=== PATIENT | male | born 1940 | race Caucasian/White ===

== ENCOUNTER 2018-05-21 08:59 | Inpatient (IN) | payer MEDICARE, OTHER ==
[2018-05-17 14:54] LABS: BASOPHILS % (AUTO) 0.4 % (0-1); EOSINOPHILS # (AUTO) 0.1 X10'3 (0-0.9); EOSINOPHILS % (AUTO) 1.6 % (0-6); LYMPHOCYTES # (AUTO) 1.9 X10'3 (1.1-4.8); LYMPHOCYTES % (AUTO) 27.6 % (21-51); MEAN CORPUSCULAR HEMOGLOBIN 33.2 PG (27.0-31.0); MEAN CORPUSCULAR HGB CONC 34.6 % (33.0-36.5); MEAN CORPUSCULAR VOLUME 95.8 FL (78-98); MEAN PLATELET VOLUME 7.3 FL (7.4-10.4); MONOCYTES # (AUTO) 0.6 X10'3 (0-0.9); MONOCYTES % (AUTO) 9.3 % (2-12); NEUTROPHILS # (AUTO) 4.2 X10'3 (1.8-7.7); NEUTROPHILS % (AUTO) 61.1 % (42-75); PRE OP HEMATOCRIT 43.6 % (42.0-52.0); PRE OP HEMOGLOBIN 15.1 g/dL (14.0-17.9); PRE OP PLATELET COUNT 145 X10'3 (140-440); RED BLOOD COUNT 4.55 X10'6 (4.70-6.10)
[2018-05-17 15:08] LABS: ALBUMIN 3.4 G/DL (3.4-5.0); ALBUMIN/GLOBULIN RATIO 1.2 (1.1-1.5); ALKALINE PHOSPHATASE 77 IU/L (46-116); BLOOD UREA NITROGEN 32 MG/DL (7-18); BUN/CREATININE RATIO 27.4 (5.4-32.0); CALCIUM 8.9 MG/DL (8.5-10.1); CHLORIDE 107 MMOL/L (99-107); CREATININE 1.17 MG/DL (0.60-1.10); PRE OP ALT 34 U/L (30-65); PRE OP ANION GAP 5 (8-16); PRE OP AST 27 U/L (10-37); PRE OP BILIRUB, TOTAL 0.7 MG/DL (0.0-1.0); PRE OP GLUCOSE 96 MG/DL (70-104); PRE OP POTASSIUM 3.9 MMOL/L (3.4-5.1); PRE OP SODIUM 138 MMOL/L (135-145); TOTAL CARBON DIOXIDE 26.5 MMOL/L (24-32); TOTAL PROTEIN 6.3 G/DL (6.4-8.2); eGFR 61 ML/MIN
[~2018-05-21] VITALS: Ht 185.4 cm; Wt 94.4 kg
[2018-05-21] VITALS (15 sets, daily range): BP systolic 119–160; BP diastolic 78–102
[2018-05-21] MEDS: ringers solution, lacted 1,000 ML IV SCH ×3 (05:00→20:43)
[~2018-05-21 08:59] MED LIST: FLO0.4C PO; GABA-532 PO; MESSAGE TO NURSING PO ONE; OMEP-84 PO; WARF5TAB PO; ceFOXitin 2 GM ADDvantage bag 100 ML IV ONE; famotidine 20mg tablet PO ONE
[2018-05-21] MEDS ORDERED: RIVA10TA PO (09:17)
[2018-05-21 09:57] LABS: PARTIAL THROMBOPLASTIN TIME 28 SECONDS (22-32); PROTHROMBIN TIME 10.7 SECONDS (9.0-12.0)
[2018-05-21] MEDS ORDERED: ceFAZolin 1000mg inj ONE (12:38)
[2018-05-21] MEDS ORDERED: BUPIVAcaine/PF 2.5mg/ml (0.25%) 10ml vial ONE (12:39)
[2018-05-21] MEDS ORDERED: dexamethasone sod phosphate 10mg/ml inj ONE (15:40)
[2018-05-21] MEDS ORDERED: glycopyrrolate 0.2mg/ml inj ONE (15:40)
[2018-05-21] MEDS ORDERED: neostigmine methylsulfate 1 MG/ML 10ml vial ONE (15:40)
[2018-05-21] MEDS ORDERED: sevoflurane 250ml liquid IH ONE (15:40)
[2018-05-21] MEDS ORDERED: midazolam 2 mg/2 ml injection ONE (15:44)
[2018-05-21] MEDS ORDERED: fentaNYL/PF 50MCG/1 ML 2ML syringe ONE (15:44)
[2018-05-21] MEDS ORDERED: LIDOcaine 2% (20mg/ml) 5ml vial ONE (15:45)
[2018-05-21] MEDS ORDERED: propofol inj 20 ML IV ONE (15:45)
[2018-05-21] MEDS ORDERED: ringers solution, lacted 1,000 ML IV SCH (16:26)
[2018-05-21] MEDS ORDERED: labetalol 5mg/ml 20ml inj. IV PRN (16:30)
[2018-05-21] MEDS ORDERED: enalaprilat dihydrate 2.5mg/2ml vial IV PRN (16:30)
[2018-05-21] MEDS ORDERED: meperidine/PF 25mg/ml syringe IV PRN ×2 (16:30)
[2018-05-21] MEDS ORDERED: ondansetron/PF 4mg/2ml inj IV PRN ×2 (16:30→18:05)
[2018-05-21] MEDS ORDERED: proCHLORperazine 10 MG/2 ml inj IV PRN (16:30)
[2018-05-21] MEDS ORDERED: meperidine/PF 50mg/ml syringe ONE (16:34)
[2018-05-21] MEDS ORDERED: rocuronium 10mg/ml inj IV ONE (16:54)
[2018-05-21] MEDS ORDERED: ondansetron/PF 4mg/2ml inj ONE (16:55)
[2018-05-21] MEDS ORDERED: HYDROcodone/acetaminophen 10/325mg tab PO PRN (18:05)
[2018-05-21] MEDS ORDERED: HYDROmorphone 1 mg/ml syringe IV ONE (18:05)
[2018-05-21] MEDS ORDERED: HYDROmorphone/NS 1 mg/ml CADD 50 ML IV SCH (18:20)
[2018-05-21] MEDS: meperidine/PF 25mg/ml syringe IV PRN ×2 (18:48→18:53)
[2018-05-21] MEDS: metoclopramide 5 mg/ml inj IV SCH (19:20)
[2018-05-21] MEDS: potassium CL 20mEq in D5-1/2NS 1,000 ML IV SCH (20:45)
[2018-05-21] MEDS ORDERED: CADD PCA waste documentation MC SCH (23:45)
[2018-05-21] MEDS ORDERED: naloxone 0.4 mg/ml inj IV PRN (23:45)
[2018-05-22] MEDS ORDERED: ceFOXitin 1 GM ADDVANTAGE BAG 1,000 GM in normal saline 100ml IV soln 100 ML IV SCH ×2
[2018-05-22] MEDS: ceFOXitin 1 GM ADDVANTAGE BAG 50 ML IV SCH ×2 (00:12→07:55)
[2018-05-22] MEDS: HYDROmorphone/NS 1 mg/ml CADD 50 ML IV SCH ×12 (01:00→23:00)
[2018-05-22] MEDS: potassium CL 20mEq in D5-1/2NS 1,000 ML IV SCH ×4 (02:01→23:34)
[2018-05-22] MEDS: metoclopramide 5 mg/ml inj IV SCH ×4 (02:10→20:20)
[2018-05-22 05:09] LABS: BASOPHILS % (AUTO) 0 % (0-1); EOSINOPHILS % (AUTO) 0 % (0-6); HEMATOCRIT 42.7 % (42.0-52.0); HEMOGLOBIN 14.6 g/dl (14.0-17.9); LYMPHOCYTES # (AUTO) 0.5 X10'3 (1.1-4.8); LYMPHOCYTES % (AUTO) 5.6 % (21-51); MEAN CORPUSCULAR HEMOGLOBIN 32.9 PG (27.0-31.0); MEAN CORPUSCULAR HGB CONC 34.1 % (33.0-36.5); MEAN CORPUSCULAR VOLUME 96.6 FL (78-98); MEAN PLATELET VOLUME 8.5 FL (7.4-10.4); MONOCYTES # (AUTO) 0.5 X10'3 (0-0.9); MONOCYTES % (AUTO) 5.5 % (2-12); NEUTROPHILS # (AUTO) 8.3 X10'3 (1.8-7.7); NEUTROPHILS % (AUTO) 88.9 % (42-75); PLATELET COUNT 132 X10'3 (140-440); RED BLOOD COUNT 4.42 X10'6 (4.70-6.10); RED CELL DISTRIBUTION WIDTH 14.2 % (11.5-14.5); WHITE BLOOD COUNT 9.3 X10'3 (4.5-11.0)
[2018-05-22 05:28] LABS: ALBUMIN 3.2 G/DL (3.4-5.0); ANION GAP 7 (8-16); BLOOD UREA NITROGEN 31 MG/DL (7-18); CALCIUM 8.6 MG/DL (8.5-10.1); CHLORIDE 103 MMOL/L (99-107); CREATININE 1.24 MG/DL (0.60-1.10); GLUCOSE 199 MG/DL (70-104); POTASSIUM 4.6 MMOL/L (3.5-5.1); SODIUM 132 MMOL/L (135-145); TOTAL CARBON DIOXIDE 22.5 MMOL/L (24-32); eGFR 57 ML/MIN
[2018-05-22 07:00] VITALS: BP 122/74
[2018-05-22] MEDS ORDERED: docusate sod 100mg capsule PO SCH (08:00)
[2018-05-22] MEDS: sennosides/docusate sodium tablet PO SCH ×2 (08:00→20:21)
[2018-05-22 11:57] VITALS: BP 116/71
[2018-05-22] MEDS: phenazopyridine 100mg tablet PO SCH ×3 (12:56→17:11)
[2018-05-22 13:28] LABS: CLARITY,URINE CLEAR (Clear); COLOR,URINE STRAW (Yellow); GLUCOSE, URINE NEGATIVE (Neg); KETONES,URINE NEGATIVE (Neg); LEUKOCYTE ESTERASE ,URINE SMALL (Neg); NITRITES, URINE NEGATIVE (Neg); OCCULT BLOOD,URINE SMALL (Neg); PH,URINE 5.5 (4.8-8.0); PROTEIN,URINE NEGATIVE (Neg); UROBILINOGEN,URINE 0.2 E.U/dL (0.2-1.0)
[2018-05-22 13:32] LABS: UA COLLECTION TYPE NON-SPECIFIED
[2018-05-22 13:37] LABS: WBC,URINE 0-4 /HPF (0-4)
[2018-05-22 13:38] LABS: BACTERIA,URINE NONE SEEN /HPF (Neg); RBC,URINE 0-2 /HPF (0-2); SQUAMOUS EPITHELIAL CELL,UR FEW /LPF (FEW)
[2018-05-22 19:20] LABS: INR 1.1 INR; PROTHROMBIN TIME 11.5 SECONDS (9.0-12.0)
[2018-05-22 20:00] VITALS: BP 131/86
[2018-05-22] MEDS: gabapentin 300mg capsule PO SCH (20:22)
[2018-05-22] MEDS: tamsulosin 0.4mg capsule PO SCH (20:22)
[2018-05-22] MEDS: pantoprazole 40mg Tablet.DR PO SCH (20:22)
[2018-05-22] MEDS ORDERED: warfarin 5mg tablet PO SCH (21:00)
[2018-05-23] VITALS: BP 133/86
[2018-05-23] MEDS: HYDROmorphone/NS 1 mg/ml CADD 50 ML IV SCH ×12 (01:00→23:00)
[2018-05-23] MEDS: metoclopramide 5 mg/ml inj IV SCH ×4 (02:02→20:49)
[2018-05-23 05:23] LABS: BASOPHILS % (AUTO) 0.1 % (0-1); EOSINOPHILS # (AUTO) 0.1 X10'3 (0-0.9); EOSINOPHILS % (AUTO) 1.5 % (0-6); HEMATOCRIT 42.2 % (42.0-52.0); HEMOGLOBIN 14.2 g/dl (14.0-17.9); LYMPHOCYTES # (AUTO) 1.6 X10'3 (1.1-4.8); MEAN CORPUSCULAR HGB CONC 33.7 % (33.0-36.5); MEAN CORPUSCULAR VOLUME 97.9 FL (78-98); MEAN PLATELET VOLUME 8.3 FL (7.4-10.4); MONOCYTES # (AUTO) 0.9 X10'3 (0-0.9); MONOCYTES % (AUTO) 9.5 % (2-12); NEUTROPHILS # (AUTO) 6.9 X10'3 (1.8-7.7); NEUTROPHILS % (AUTO) 71.9 % (42-75); PLATELET COUNT 144 X10'3 (140-440); RED BLOOD COUNT 4.31 X10'6 (4.70-6.10); RED CELL DISTRIBUTION WIDTH 14.1 % (11.5-14.5); WHITE BLOOD COUNT 9.6 X10'3 (4.5-11.0)
[2018-05-23 05:42] LABS: ALBUMIN 2.8 G/DL (3.4-5.0); ANION GAP 5 (8-16); BLOOD UREA NITROGEN 19 MG/DL (7-18); BUN/CREATININE RATIO 15.8 (5.4-32.0); CALCIUM 8.7 MG/DL (8.5-10.1); CHLORIDE 106 MMOL/L (99-107); GLUCOSE 116 MG/DL (70-104); POTASSIUM 4.3 MMOL/L (3.5-5.1); SODIUM 137 MMOL/L (135-145); TOTAL CARBON DIOXIDE 25.8 MMOL/L (24-32); eGFR 59 ML/MIN
[2018-05-23 07:06] VITALS: BP 133/88
[2018-05-23] MEDS: gabapentin 300mg capsule PO SCH ×2 (07:43→20:47)
[2018-05-23] MEDS: pantoprazole 40mg Tablet.DR PO SCH ×2 (07:43→20:48)
[2018-05-23] MEDS: phenazopyridine 100mg tablet PO SCH ×3 (07:44→17:55)
[2018-05-23] MEDS: sennosides/docusate sodium tablet PO SCH ×2 (07:45→20:00)
[2018-05-23] MEDS: enoxaparin 40mg/0.4ml syringe SUBCUT SCH (07:46)
[2018-05-23 11:30] VITALS: BP 125/82
[2018-05-23] MEDS: potassium CL 20mEq in D5-1/2NS 1,000 ML IV SCH (13:08)
[2018-05-23] MEDS ORDERED: methylnaltrexone br 12mg/0.6ml inj***SubQ only SQ SCH (14:00)
[2018-05-23 18:00] VITALS: BP 106/82
[2018-05-23] MEDS: magnesium hydroxide 30ml (MOM) UD suspension PO SCH (20:00)
[2018-05-23] MEDS: tamsulosin 0.4mg capsule PO SCH (20:48)
[2018-05-23] MEDS ORDERED: warfarin 3mg tablet PO ONE (21:00)
[2018-05-24] VITALS: BP_SYST 109; BP_SYST 133; BP_DIAS 72; BP_DIAS 78
[2018-05-24] MEDS: HYDROmorphone/NS 1 mg/ml CADD 50 ML IV SCH (01:00)
[2018-05-24] MEDS: metoclopramide 5 mg/ml inj IV SCH ×3 (01:46→14:00)
[2018-05-24] MEDS: potassium CL 20mEq in D5-1/2NS 1,000 ML IV SCH (05:13)
[2018-05-24 05:21] LABS: BASOPHILS % (AUTO) 0.3 % (0-1); EOSINOPHILS # (AUTO) 0.2 X10'3 (0-0.9); EOSINOPHILS % (AUTO) 3.1 % (0-6); HEMATOCRIT 41.6 % (42.0-52.0); HEMOGLOBIN 14.2 g/dl (14.0-17.9); LYMPHOCYTES # (AUTO) 1.9 X10'3 (1.1-4.8); LYMPHOCYTES % (AUTO) 24.2 % (21-51); MEAN CORPUSCULAR HEMOGLOBIN 33.4 PG (27.0-31.0); MEAN PLATELET VOLUME 8.1 FL (7.4-10.4); MONOCYTES # (AUTO) 0.8 X10'3 (0-0.9); MONOCYTES % (AUTO) 10.7 % (2-12); NEUTROPHILS # (AUTO) 4.7 X10'3 (1.8-7.7); NEUTROPHILS % (AUTO) 61.7 % (42-75); PLATELET COUNT 139 X10'3 (140-440); RED BLOOD COUNT 4.25 X10'6 (4.70-6.10); RED CELL DISTRIBUTION WIDTH 14.4 % (11.5-14.5); WHITE BLOOD COUNT 7.6 X10'3 (4.5-11.0)
[2018-05-24 05:24] LABS: INR 1.1 INR; PROTHROMBIN TIME 11.3 SECONDS (9.0-12.0)
[2018-05-24 05:43] LABS: ALBUMIN 2.8 G/DL (3.4-5.0); ANION GAP 8 (8-16); BLOOD UREA NITROGEN 15 MG/DL (7-18); BUN/CREATININE RATIO 13.4 (5.4-32.0); CALCIUM 8.5 MG/DL (8.5-10.1); CHLORIDE 104 MMOL/L (99-107); CREATININE 1.12 MG/DL (0.60-1.10); GLUCOSE 87 MG/DL (70-104); POTASSIUM 4.3 MMOL/L (3.5-5.1); SODIUM 139 MMOL/L (135-145); TOTAL CARBON DIOXIDE 27.4 MMOL/L (24-32); eGFR 64 ML/MIN
[2018-05-24 07:02] VITALS: BP 118/81
[2018-05-24] MEDS: pantoprazole 40mg Tablet.DR PO SCH (07:54)
[2018-05-24] MEDS: gabapentin 300mg capsule PO SCH (07:54)
[2018-05-24] MEDS: phenazopyridine 100mg tablet PO SCH ×3 (07:54→19:16)
[2018-05-24] MEDS: enoxaparin 40mg/0.4ml syringe SUBCUT SCH (07:55)
[2018-05-24] MEDS: magnesium hydroxide 30ml (MOM) UD suspension PO SCH (08:00)
[2018-05-24] MEDS: sennosides/docusate sodium tablet PO SCH (08:00)
[2018-05-24] MEDS ORDERED: methylnaltrexone br 12mg/0.6ml inj***SubQ only SQ SCH (08:00)
[2018-05-24 11:31] VITALS: BP 107/80
[2018-05-24] MEDS ORDERED: warfarin 7.5mg tablet PO ONE ×2 (18:30→21:00)
== END 2018-05-24 19:50 | disposition home or self-care (01) | DRG 336 ==
LOC: PAS 08:59 → SUR 3N 18:01 → OBSVTOIN 05-22 08:00
PROVIDERS: ADMIT Surgery; ATTEND Surgery
PROC: 0DNU4ZZ Release Omentum, Percutaneous Endoscopic Approach (ICD-10-PCS; 2018-05-21)
PROC: 0DNE4ZZ Release Large Intestine, Percutaneous Endoscopic Approach (ICD-10-PCS; 2018-05-21)
PROC: 0WUF4JZ Supplement Abdominal Wall with Synthetic Substitute, Percutaneous Endoscopic Approach (ICD-10-PCS; principal; 2018-05-21 15:40)
DX: K43.2 Incisional hernia without obstruction or gangrene (principal); I42.9 Cardiomyopathy, unspecified; K21.9 Gastro-esophageal reflux disease without esophagitis; K66.0 Peritoneal adhesions (postprocedural) (postinfection); M41.9 Scoliosis, unspecified; G89.29 Other chronic pain; Z96.659 Presence of unspecified artificial knee joint; I49.9 Cardiac arrhythmia, unspecified; M48.00 Spinal stenosis, site unspecified; N40.0 Benign prostatic hyperplasia without lower urinary tract symptoms; Z88.5 Allergy status to narcotic agent; Z88.8 Allergy status to other drugs, medicaments and biological substances; Z79.899 Other long term (current) drug therapy; Z86.718 Personal history of other venous thrombosis and embolism; Y93.89 Activity, other specified; Y99.8 Other external cause status
CPT/HCPCS: 36415; 71046; 74176; 80048; 80053; 81001; 85025; 85610; 85730; 93005; A4315; A4353; A7000; C1758; C1781; G0378; J0690; J0694; J1100; J1170; J1650; J2001; J2175; J2250; J2405; J2704; J2710; J2765; J3010; J3490; J7120

== ENCOUNTER 2018-07-31 12:20 | Outpatient (CLI) | payer MEDICARE, OTHER ==
[~2018-07-31 12:20] MED LIST changes: -MESSAGE TO NURSING PO ONE; +RIVA10TA PO; -ceFOXitin 2 GM ADDvantage bag 100 ML IV ONE; -famotidine 20mg tablet PO ONE
== END 2018-07-31 23:59 | disposition home or self-care (01) ==
LOC: RAD 12:20
PROVIDERS: ATTEND Physical Medicine & Rehabilitation
DX: M47.816 Spondylosis without myelopathy or radiculopathy, lumbar region (principal); M47.815 Spondylosis without myelopathy or radiculopathy, thoracolumbar region; M41.86 Other forms of scoliosis, lumbar region; M51.36 Other intervertebral disc degeneration, lumbar region; M48.061 Spinal stenosis, lumbar region without neurogenic claudication; Z79.01 Long term (current) use of anticoagulants
CPT/HCPCS: 72148

== ENCOUNTER 2018-11-17 18:14 | Emergency (ER) | payer MEDICARE, OTHER ==
[~2018-11-17] VITALS: Ht 185.4 cm; Wt 102.0 kg
[2018-11-17 19:03] LABS: BASOPHILS # (AUTO) 0.1 X10'3 (0-0.2); BASOPHILS % (AUTO) 1.1 % (0-1); EOSINOPHILS # (AUTO) 0.2 X10'3 (0-0.9); EOSINOPHILS % (AUTO) 3.1 % (0-6); HEMATOCRIT 44.6 % (42.0-52.0); HEMOGLOBIN 14.7 g/dl (14.0-17.9); LYMPHOCYTES # (AUTO) 1.8 X10'3 (1.1-4.8); LYMPHOCYTES % (AUTO) 34.6 % (21-51); MEAN CORPUSCULAR HEMOGLOBIN 31.1 PG (27.0-31.0); MEAN CORPUSCULAR HGB CONC 32.9 % (33.0-36.5); MEAN CORPUSCULAR VOLUME 94.7 FL (78-98); MEAN PLATELET VOLUME 8.1 FL (7.4-10.4); MONOCYTES # (AUTO) 0.5 X10'3 (0-0.9); MONOCYTES % (AUTO) 10.4 % (2-12); NEUTROPHILS # (AUTO) 2.7 X10'3 (1.8-7.7); NEUTROPHILS % (AUTO) 50.8 % (42-75); PLATELET COUNT 171 X10'3 (140-440); RED BLOOD COUNT 4.71 X10'6 (4.70-6.10); RED CELL DISTRIBUTION WIDTH 13.2 % (11.5-14.5); WHITE BLOOD COUNT 5.3 X10'3 (4.5-11.0)
[2018-11-17 19:05] LABS: ALANINE AMINOTRANSFERASE 22 U/L (12-78); ALBUMIN 3.3 G/DL (3.4-5.0); ALBUMIN/GLOBULIN RATIO 1.2 (1.1-1.5); ALKALINE PHOSPHATASE 84 IU/L (46-116); ANION GAP 12 (8-16); ASPARTATE AMINO TRANSFERASE 21 U/L (10-37); BILIRUBIN,TOTAL 0.4 MG/DL (0.1-1.0); BLOOD UREA NITROGEN 23 MG/DL (7-18); BUN/CREATININE RATIO 21.5 (5.4-32.0); CALCIUM 8.3 MG/DL (8.5-10.1); CHLORIDE 104 MMOL/L (99-107); CREATININE 1.07 MG/DL (0.60-1.10); GLUCOSE 103 MG/DL (70-104); SODIUM 137 MMOL/L (135-145); TOTAL CARBON DIOXIDE 21.3 MMOL/L (24-32); eGFR 67 ML/MIN
[2018-11-17 19:07] LABS: INR 2.6 INR; PARTIAL THROMBOPLASTIN TIME 44 SECONDS (22-32); PROTHROMBIN TIME 25.5 SECONDS (9.0-12.0)
[2018-11-17 20:14] LABS: CLARITY,URINE CLEAR (Clear); COLOR,URINE YELLOW (Yellow); GLUCOSE, URINE NEGATIVE (Neg); KETONES,URINE TRACE mg/dl (Neg); LEUKOCYTE ESTERASE ,URINE NEGATIVE (Neg); NITRITES, URINE NEGATIVE (Neg); OCCULT BLOOD,URINE NEGATIVE (Neg); PH,URINE 6.5 (4.8-8.0); PROTEIN,URINE NEGATIVE (Neg); UROBILINOGEN,URINE 0.2 E.U/dL (0.2-1.0)
[2018-11-17 20:16] LABS: UA COLLECTION TYPE VOIDED
[2018-11-17] MEDS ORDERED: meclizine 12.5mg tablet PO ONE (20:20)
[2018-11-17] MEDS ORDERED: MECL12.584 PO (20:20)
[2018-11-17 21:05] VITALS: BP 117/82
== END 2018-11-17 22:01 | disposition home or self-care (01) ==
LOC: ER 18:14
DX: R42 Dizziness and giddiness (principal); K21.9 Gastro-esophageal reflux disease without esophagitis; G89.29 Other chronic pain; M54.9 Dorsalgia, unspecified; Z95.0 Presence of cardiac pacemaker; Z88.6 Allergy status to analgesic agent; Z88.8 Allergy status to other drugs, medicaments and biological substances
CPT/HCPCS: 36415; 70450; 71045; 80053; 81003; 84484; 85025; 85610; 85730; 93005; 99284; J8597

== ENCOUNTER 2019-12-09 14:53 | Outpatient (CLI) | payer MEDICARE, OTHER ==
[~2019-12-09 14:53] MED LIST changes: +MECL-183 PO
== END 2019-12-09 23:59 | disposition home or self-care (01) ==
LOC: RAD 14:53
PROVIDERS: ATTEND Physical Medicine & Rehabilitation
DX: M51.16 Intervertebral disc disorders with radiculopathy, lumbar region (principal); M47.26 Other spondylosis with radiculopathy, lumbar region
CPT/HCPCS: 72148

== ENCOUNTER 2020-04-17 15:11 | Inpatient (IN) | payer MEDICARE, OTHER ==
[~2020-04-17] VITALS: Ht 185.4 cm; Wt 90.4 kg
[~2020-04-17 15:11] MED LIST changes: -WARF5TAB PO; +WARF5TAB2 PO
--- NOTE | 2020-04-17 15:27 | NUR ---
Pt transported to CT via w/c with tech.
[2020-04-17 15:37] LABS: BASOPHILS # (AUTO) 0.1 X10'3 (0-0.2); BASOPHILS % (AUTO) 0.9 % (0-1); EOSINOPHILS # (AUTO) 0.2 X10'3 (0-0.9); EOSINOPHILS % (AUTO) 3.8 % (0-6); HEMATOCRIT 43.7 % (42.0-52.0); HEMOGLOBIN 14.4 g/dl (14.0-17.9); LYMPHOCYTES # (AUTO) 1.8 X10'3 (1.1-4.8); LYMPHOCYTES % (AUTO) 28.6 % (21-51); MEAN CORPUSCULAR HEMOGLOBIN 31.9 PG (27.0-31.0); MEAN CORPUSCULAR HGB CONC 32.9 g/dL (33.0-36.5); MEAN CORPUSCULAR VOLUME 96.9 FL (78-98); MEAN PLATELET VOLUME 8.1 FL (7.4-10.4); MONOCYTES # (AUTO) 0.5 X10'3 (0-0.9); MONOCYTES % (AUTO) 7.4 % (2-12); NEUTROPHILS # (AUTO) 3.7 X10'3 (1.8-7.7); NEUTROPHILS % (AUTO) 59.3 % (42-75); PLATELET COUNT 164 X10'3 (140-440); RED BLOOD COUNT 4.51 X10'6 (4.70-6.10); RED CELL DISTRIBUTION WIDTH 14.1 % (11.5-14.5); WHITE BLOOD COUNT 6.2 X10'3 (4.5-11.0)
--- NOTE | 2020-04-17 15:37 | NUR ---
patient in room 15.
[2020-04-17 15:45] LABS: PARTIAL THROMBOPLASTIN TIME 49 SECONDS (22-32)
[2020-04-17 15:46] LABS: ALANINE AMINOTRANSFERASE 32 U/L (12-78); ALBUMIN 3.4 G/DL (3.4-5.0); ALBUMIN/GLOBULIN RATIO 1.3 (1.1-1.5); ALKALINE PHOSPHATASE 90 IU/L (46-116); ANION GAP 5 (8-16); ASPARTATE AMINO TRANSFERASE 29 U/L (10-37); BILIRUBIN,TOTAL 0.5 MG/DL (0.1-1.0); BLOOD UREA NITROGEN 26 MG/DL (7-18); BUN/CREATININE RATIO 18.3 (5.4-32.0); CALCIUM 8.5 MG/DL (8.5-10.1); CHLORIDE 108 MMOL/L (99-107); CREATININE 1.42 MG/DL (0.60-1.10); GLUCOSE 123 MG/DL (70-104); POTASSIUM 4.4 MMOL/L (3.5-5.1); SODIUM 140 MMOL/L (135-145); TOTAL CARBON DIOXIDE 27.3 MMOL/L (24-32); eGFR 48 ML/MIN
[2020-04-17 15:49] LABS: TROPONIN I < 0.04 NG/ML (0.0-0.05)
[2020-04-17] MEDS ORDERED: WARF-113 PO (16:28)
[2020-04-17] MEDS ORDERED: ondansetron/PF 4mg/2ml inj IV PRN (17:05)
[2020-04-17] MEDS ORDERED: magnesium 4gm in 100ml NS 100 ML IV PRN (17:05)
[2020-04-17] MEDS ORDERED: potassium Cl 20 mEq SR tablet PO PRN ×2 (17:05)
[2020-04-17] MEDS ORDERED: mag hydrox/Alum hydrox/simeth 30ml oral suspension PO PRN (17:05)
[2020-04-17] MEDS ORDERED: potassium CL 10mEq/100ml bag 100 ML IV PRN ×2 (17:05)
[2020-04-17] MEDS ORDERED: acetaminophen 325mg tablet PO PRN ×2 (17:05)
[2020-04-17] MEDS ORDERED: magnesium 2GM in 50ml NS 50 ML IV PRN (17:05)
[2020-04-17] MEDS ORDERED: magnesium Cl slow-release 64mg tablet PO PRN (17:05)
[2020-04-17] MEDS: normal saline 1000ml 1,000 ML IV SCH (17:40)
[2020-04-17 19:00] VITALS: BP 144/87
[2020-04-17] MEDS: K and/or MAG REPLACEMENT MC SCH (20:00)
[2020-04-17] MEDS: docusate sod 100mg capsule PO SCH (20:44)
[2020-04-17] MEDS: gabapentin 300mg capsule PO SCH (20:44)
[2020-04-17] MEDS ORDERED: tamsulosin 0.4mg capsule PO SCH (21:00)
[2020-04-17] MEDS ORDERED: temazepam 15mg capsule PO PRN (21:00)
[2020-04-18] VITALS: BP 138/66
[2020-04-18 04:00] VITALS: BP 99/56
--- NOTE | 2020-04-18 05:56 | NUR ---
Problems reprioritized. Patient report given, questions answered & plan of care reviewed with JAXON Starkey.
[2020-04-18 06:00] VITALS: BP 122/77
--- NOTE | 2020-04-18 06:10 | NUR ---
received report from aby gray rn
[2020-04-18 07:11] LABS: BASOPHILS # (AUTO) 0.1 X10'3 (0-0.2); BASOPHILS % (AUTO) 1.5 % (0-1); EOSINOPHILS # (AUTO) 0.3 X10'3 (0-0.9); EOSINOPHILS % (AUTO) 6.8 % (0-6); HEMOGLOBIN 14.3 g/dl (14.0-17.9); LYMPHOCYTES # (AUTO) 1.8 X10'3 (1.1-4.8); LYMPHOCYTES % (AUTO) 40.4 % (21-51); MEAN CORPUSCULAR HEMOGLOBIN 31.9 PG (27.0-31.0); MEAN CORPUSCULAR HGB CONC 33.3 g/dL (33.0-36.5); MEAN CORPUSCULAR VOLUME 95.8 FL (78-98); MEAN PLATELET VOLUME 8.4 FL (7.4-10.4); MONOCYTES # (AUTO) 0.5 X10'3 (0-0.9); MONOCYTES % (AUTO) 10.3 % (2-12); NEUTROPHILS # (AUTO) 1.9 X10'3 (1.8-7.7); PLATELET COUNT 158 X10'3 (140-440); RED BLOOD COUNT 4.49 X10'6 (4.70-6.10); RED CELL DISTRIBUTION WIDTH 14.2 % (11.5-14.5); WHITE BLOOD COUNT 4.6 X10'3 (4.5-11.0)
[2020-04-18] MEDS: normal saline 1000ml 1,000 ML IV SCH (07:19)
[2020-04-18] MEDS: gabapentin 300mg capsule PO SCH (07:23)
[2020-04-18] MEDS: docusate sod 100mg capsule PO SCH (07:24)
[2020-04-18] MEDS ORDERED: pantoprazole 40mg Tablet.DR PO SCH (07:30)
[2020-04-18 07:31] LABS: ALBUMIN 3.2 G/DL (3.4-5.0); ANION GAP 7 (8-16); BLOOD UREA NITROGEN 22 MG/DL (7-18); BUN/CREATININE RATIO 17.5 (5.4-32.0); CALCIUM 8.8 MG/DL (8.5-10.1); CHLORIDE 110 MMOL/L (99-107); CHOL/HDL RATIO 2.2 (0.00-4.99); CHOLESTEROL 160 MG/DL (0-200); CREATININE 1.26 MG/DL (0.60-1.10); GLUCOSE 90 MG/DL (70-104); HDL CHOLESTEROL 74 MG/DL (35-60); LDL CHOLESTEROL 68 MG/DL (50-100); MAGNESIUM 2.1 MG/DL (1.5-2.4); POTASSIUM 4.8 MMOL/L (3.5-5.1); SODIUM 142 MMOL/L (135-145); TOTAL CARBON DIOXIDE 24.6 MMOL/L (24-32); TRIGLYCERIDES 58 MG/DL (20-135); eGFR 55 ML/MIN
[2020-04-18] MEDS: K and/or MAG REPLACEMENT MC SCH (07:37)
--- NOTE | 2020-04-18 07:40 | NUR ---
md aware of pts inr of 4.2, no new orders at this time, continue to monitor
[2020-04-18] MEDS ORDERED: tamsulosin 0.4mg capsule PO SCH (08:00)
[2020-04-18 10:00] VITALS: BP 121/71
[2020-04-18] MEDS ORDERED: iohexol 300mg/ml 100ml inj. ONE (15:05)
[2020-04-18] MEDS ORDERED: iohexol 350MG/ML 100ml bottle IV ONE (15:08)
--- NOTE | 2020-04-18 17:40 | NUR ---
pt d/c with instructions, understanding of instructions and w/all belongings in wheelchair accompanied by fam member to private vehicle to f/u w/manager trust and pcp
--- NOTE | 2020-04-21 11:54 | NUR ---
Case Management DC follow up: spoke to pt via telephone. S/P: Reports: "Doing well, fine". Denies: acute cp, SOB, resp distress, vertigo, syncope,weakness, blurry vision, N/V, BARRAGAN, emergent general pain, abd tenderness/distension, fever. Verbalizes understanding of s/s that warrant 9-11/ER visit for evaluation. Verbalizes understanding of Rx and why prescribed, resumes current Rx/taking as ordered, no ase r/t polypharmacy. Pt [facility]t [facility] 04/19/20 INR 2.7, admised to continue Continue Coumadin at the ordered dose. Acknowledges need to schedule/keep follow up appts w/ PCP Regan Tena/Power Humphrey r/t chronic back issuesPadmini 05/08/20. Pt will keep/schedule appts w/all other specialists, PCP after visit w/Dr Washington. Needs met, questions answered at DC, no further questions at this time.
== END 2020-04-18 17:35 | disposition home or self-care (01) | DRG 69 ==
LOC: ER 15:12 → ED HOLD 17:01 → ORTHO 4S 19:05
PROVIDERS: ADMIT Internal Medicine; ATTEND Internal Medicine
DX: G45.9 Transient cerebral ischemic attack, unspecified (principal); G89.29 Other chronic pain; I48.0 Paroxysmal atrial fibrillation; I49.5 Sick sinus syndrome; K21.9 Gastro-esophageal reflux disease without esophagitis; M54.9 Dorsalgia, unspecified; K44.9 Diaphragmatic hernia without obstruction or gangrene; N18.3 Chronic kidney disease, stage 3 (moderate); Z79.01 Long term (current) use of anticoagulants; Z79.899 Other long term (current) drug therapy; Z86.73 Personal history of transient ischemic attack (TIA), and cerebral infarction without residual deficits; Z95.0 Presence of cardiac pacemaker; Z88.8 Allergy status to other drugs, medicaments and biological substances
CPT/HCPCS: 36415; 70450; 70496; 70498; 71045; 73030; 80048; 80053; 80061; 82948; 83735; 84484; 85025; 85610; 85730; 93005; 93306; 93880; 97116; 97161; 97530; 99285; G0378; J7030; Q9967

== ENCOUNTER 2020-07-21 10:21 | Outpatient (CLI) | payer MEDICARE, OTHER ==
[~2020-07-21 10:21] MED LIST changes: -MECL-183 PO; -RIVA10TA PO; -WARF5TAB2 PO
== END 2020-07-21 23:59 | disposition home or self-care (01) ==
LOC: RAD 10:21
PROVIDERS: ATTEND Anesthesiology
DX: M47.22 Other spondylosis with radiculopathy, cervical region (principal); M48.02 Spinal stenosis, cervical region
CPT/HCPCS: 72141

== ENCOUNTER 2020-10-16 10:21 | Emergency (ER) | payer MEDICARE, OTHER ==
[~2020-10-16] VITALS: Ht 185.4 cm; Wt 88.0 kg
[2020-10-16 10:33] VITALS: BP 125/76
[2020-10-16] MEDS ORDERED: CEPH250T PO (12:05)
== END 2020-10-16 12:20 | disposition home or self-care (01) ==
LOC: ER 10:23
DX: B99.8 Other infectious disease (principal); K21.9 Gastro-esophageal reflux disease without esophagitis; N40.0 Benign prostatic hyperplasia without lower urinary tract symptoms; G89.29 Other chronic pain; Z86.79 Personal history of other diseases of the circulatory system; Z98.890 Other specified postprocedural states; Z95.0 Presence of cardiac pacemaker; Z72.89 Other problems related to lifestyle; Z88.8 Allergy status to other drugs, medicaments and biological substances; Z79.2 Long term (current) use of antibiotics; Z79.899 Other long term (current) drug therapy; Z86.73 Personal history of transient ischemic attack (TIA), and cerebral infarction without residual deficits
CPT/HCPCS: 99283

== ENCOUNTER 2021-04-09 22:34 | Emergency (ER) | payer MEDICARE, OTHER ==
[~2021-04-09] VITALS: Ht 185.4 cm; Wt 90.5 kg
[2021-04-10 00:16] LABS: ALANINE AMINOTRANSFERASE 27 U/L (12-78); ALBUMIN 3.8 G/DL (3.4-5.0); ALBUMIN/GLOBULIN RATIO 1.4 (1.1-1.5); ALKALINE PHOSPHATASE 78 IU/L (46-116); ANION GAP 11 (8-16); ASPARTATE AMINO TRANSFERASE 24 U/L (10-37); BILIRUBIN,TOTAL 0.9 MG/DL (0.1-1.0); BLOOD UREA NITROGEN 23 MG/DL (7-18); CALCIUM 9.2 MG/DL (8.5-10.1); CHLORIDE 106 MMOL/L (99-107); CREATININE 1.44 MG/DL (0.60-1.10); GLUCOSE 114 MG/DL (70-104); LIPASE 67 U/L (73-393); POTASSIUM 4.3 MMOL/L (3.5-5.1); SODIUM 139 MMOL/L (135-145); TOTAL CARBON DIOXIDE 21.9 MMOL/L (24-32); TOTAL PROTEIN 6.6 G/DL (6.4-8.2); eGFR 47 ML/MIN
[2021-04-10 01:04] LABS: BASOPHILS # (AUTO) 0.1 X10'3 (0-0.2); BASOPHILS % (AUTO) 0.8 % (0-1); EOSINOPHILS # (AUTO) 0.2 X10'3 (0-0.9); HEMATOCRIT 44.5 % (42.0-52.0); HEMOGLOBIN 15.3 g/dl (14.0-17.9); LYMPHOCYTES # (AUTO) 1.7 X10'3 (1.1-4.8); LYMPHOCYTES % (AUTO) 21.6 % (21-51); MEAN CORPUSCULAR HEMOGLOBIN 32.3 PG (27.0-31.0); MEAN CORPUSCULAR HGB CONC 34.3 g/dL (33.0-36.5); MEAN CORPUSCULAR VOLUME 94.2 FL (78-98); MEAN PLATELET VOLUME 8.7 FL (7.4-10.4); MONOCYTES # (AUTO) 0.8 X10'3 (0-0.9); NEUTROPHILS % (AUTO) 65.6 % (42-75); PLATELET COUNT 168 X10'3 (140-440); RED BLOOD COUNT 4.72 X10'6 (4.70-6.10); RED CELL DISTRIBUTION WIDTH 13.6 % (11.5-14.5); WHITE BLOOD COUNT 7.7 X10'3 (4.5-11.0)
[2021-04-10 02:55] LABS: CLARITY,URINE CLEAR (Clear); COLOR,URINE YELLOW (Yellow); GLUCOSE, URINE NEGATIVE (Neg); KETONES,URINE 15 mg/dl (Neg); LEUKOCYTE ESTERASE ,URINE NEGATIVE (Neg); NITRITES, URINE NEGATIVE (Neg); OCCULT BLOOD,URINE LARGE (Neg); PROTEIN,URINE TRACE mg/dl (Neg); UROBILINOGEN,URINE 0.2 E.U/dL (0.2-1.0)
[2021-04-10 03:01] LABS: UA COLLECTION TYPE CLN CATCH MIDSTREAM
[2021-04-10 03:02] LABS: BACTERIA,URINE NONE SEEN /HPF (Neg); SQUAMOUS EPITHELIAL CELL,UR FEW /LPF (FEW); WBC,URINE NONE SEEN /HPF (0-4)
[2021-04-10] MEDS ORDERED: iohexol 300mg/ml 100ml inj. ONE (03:04)
[2021-04-10 04:29] VITALS: BP 137/94
== END 2021-04-10 04:32 | disposition home or self-care (01) ==
LOC: ER 22:35
DX: R10.31 Right lower quadrant pain (principal); R19.7 Diarrhea, unspecified; R31.9 Hematuria, unspecified; R11.2 Nausea with vomiting, unspecified; K21.9 Gastro-esophageal reflux disease without esophagitis; Z98.890 Other specified postprocedural states; G89.29 Other chronic pain; N40.0 Benign prostatic hyperplasia without lower urinary tract symptoms; Z95.0 Presence of cardiac pacemaker; Z72.89 Other problems related to lifestyle; Z86.73 Personal history of transient ischemic attack (TIA), and cerebral infarction without residual deficits; Z79.899 Other long term (current) drug therapy; Z88.8 Allergy status to other drugs, medicaments and biological substances
CPT/HCPCS: 36415; 74177; 80053; 81001; 83690; 85025; 99285; Q9967

== ENCOUNTER 2021-04-13 09:28 | Outpatient (CLI) | payer MEDICARE, OTHER | END 2021-04-13 23:59 | disposition home or self-care (01) | LOC: RAD 09:28 | PROVIDERS: ATTEND Physical Medicine & Rehabilitation | DX: M47.816 Spondylosis without myelopathy or radiculopathy, lumbar region (principal); M51.16 Intervertebral disc disorders with radiculopathy, lumbar region; K57.30 Diverticulosis of large intestine without perforation or abscess without bleeding; R60.9 Edema, unspecified; M25.78 Osteophyte, vertebrae | CPT/HCPCS: 72148 ==

== ENCOUNTER 2021-04-29 09:53 | Outpatient (CLI) | payer MEDICARE, OTHER | END 2021-04-29 23:59 | disposition home or self-care (01) | LOC: 64 CT 09:53 | PROVIDERS: ATTEND Physical Medicine & Rehabilitation | DX: M51.16 Intervertebral disc disorders with radiculopathy, lumbar region (principal); G95.89 Other specified diseases of spinal cord; K57.30 Diverticulosis of large intestine without perforation or abscess without bleeding; K86.89 Other specified diseases of pancreas; K44.9 Diaphragmatic hernia without obstruction or gangrene; M25.78 Osteophyte, vertebrae | CPT/HCPCS: 72131 ==

== ENCOUNTER 2021-11-29 05:46 | Day surgery (SDC) | payer MEDICARE, OTHER ==
[2021-11-24 15:40] LABS: BASOPHILS # (AUTO) 0.1 X10'3 (0-0.2); EOSINOPHILS # (AUTO) 0.1 X10'3 (0-0.9); EOSINOPHILS % (AUTO) 2.4 % (0-6); LYMPHOCYTES # (AUTO) 2.1 X10'3 (1.1-4.8); LYMPHOCYTES % (AUTO) 36.9 % (21-51); MEAN CORPUSCULAR VOLUME 94.1 FL (78-98); MEAN PLATELET VOLUME 7.4 FL (7.4-10.4); MONOCYTES # (AUTO) 0.5 X10'3 (0-0.9); MONOCYTES % (AUTO) 8.7 % (2-12); PRE OP HEMATOCRIT 41.3 % (42.0-52.0); PRE OP HEMOGLOBIN 14.1 g/dL (14.0-17.9); PRE OP PLATELET COUNT 161 X10'3 (140-440); RED BLOOD COUNT 4.39 X10'6 (4.70-6.10); RED CELL DISTRIBUTION WIDTH 14.3 % (11.5-14.5)
[2021-11-24 15:54] LABS: ALBUMIN 3.6 G/DL (3.4-5.0); ALBUMIN/GLOBULIN RATIO 1.6 (1.1-1.5); ALKALINE PHOSPHATASE 63 IU/L (46-116); BLOOD UREA NITROGEN 24 MG/DL (7-18); BUN/CREATININE RATIO 15.8 (5.4-32.0); CHLORIDE 105 MMOL/L (99-107); CREATININE 1.52 MG/DL (0.60-1.10); PRE OP ALT 34 U/L (30-65); PRE OP ANION GAP 6 (8-16); PRE OP AST 23 U/L (10-37); PRE OP BILIRUB, TOTAL 0.7 MG/DL (0.0-1.0); PRE OP GLUCOSE 103 MG/DL (70-104); PRE OP POTASSIUM 4.2 MMOL/L (3.4-5.1); PRE OP SODIUM 138 MMOL/L (135-145); TOTAL CARBON DIOXIDE 27.4 MMOL/L (24-32); TOTAL PROTEIN 5.9 G/DL (6.4-8.2); eGFR 45 ML/MIN
[~2021-11-29] VITALS: Ht 185.4 cm; Wt 93.0 kg
[2021-11-29] VITALS (16 sets, daily range): BP systolic 113–161; BP diastolic 78–96
[~2021-11-29 05:46] MED LIST changes: +DOCUMENT DATE & TIME OF BETA-BLOCKER PO ONE; +METO-384 PO; +RAMI2.5C54 PO; +VITAMIN D3; +WARF-55 PO; +cefazolin/dext.iso 2gm/50ml 50 ML IV ONE; +famotidine 20mg tablet PO ONE; +ringers solution, lacted 1,000 ML IV SCH
[2021-11-29] MEDS ORDERED: desflurane 240ml liquid inh. IH ONE (06:00)
[2021-11-29] MEDS ORDERED: BUPIVAcaine/PF 2.5 mg/ml (0.25%) 30ml vial ONE (06:48)
[2021-11-29] MEDS ORDERED: LIDOcaine 1% 30ml preserv. free vial ONE (06:48)
[2021-11-29 07:25] LABS: PRE OP PARTIAL THROMB. TIME 25 SECONDS (22-32)
[2021-11-29] MEDS ORDERED: ondansetron/PF 4mg/2ml inj IV PRN (07:35)
[2021-11-29] MEDS ORDERED: ringers solution, lacted 1,000 ML IV SCH (07:35)
[2021-11-29] MEDS ORDERED: meperidine/PF 25mg/ml syringe IV PRN ×3 (07:35)
[2021-11-29] MEDS ORDERED: proCHLORperazine 10 MG/2 ml inj IV PRN (07:35)
[2021-11-29] MEDS ORDERED: morphine 2 MG/ML inj. syringe IV PRN (07:35)
[2021-11-29] MEDS ORDERED: fentaNYL/PF 50MCG/1 ML 2ML syringe ONE (07:52)
[2021-11-29] MEDS ORDERED: midazolam 1 mg/ML 2ml injection ONE (07:53)
[2021-11-29] MEDS ORDERED: LIDOcaine 2% (20mg/ml) 5ml vial ONE (08:04)
[2021-11-29] MEDS ORDERED: propofol inj 20 ML IV ONE (08:04)
--- NOTE | 2021-11-29 09:17 | NUR ---
Received from OR via , accompanied by Anesthesiologist DR MOLINA and report given by Anesthesiolgist. PT PRESENT WITH 20G LEFT HAND, ABD DRESSING DRY AND INTACT. VSS.
[2021-11-29] MEDS ORDERED: HYDROcodone/acetaminophen 5mg/325mg tablet PO PRN (09:40)
--- NOTE | 2021-11-29 10:15 | NUR ---
PT URINATED INTO URINAL 50MLS, BLADDER SCAN SHOWED 350 IN BLADDER. Addendum: 11/29/21 at 1113 by Afshan Cardenas RN, RN Amended: Links added.
--- NOTE | 2021-11-29 11:12 | NUR ---
PT URINATED 350MLS, BLADDER SCAN SHOWED 190MLS Addendum: 11/29/21 at 1113 by Afshan Cardenas RN, RN Amended: Links added.
--- NOTE | 2021-11-29 11:20 | NUR ---
PT URINATED IN URINAL 400MLS, PT BLADDER SCAN WITH JAYLENIST VOID OF 1989. DR PETERSON NOTIFIED AND PT IS OK TO GO HOME WITH NO MCMAHON CATHETER Addendum: 11/29/21 at 1310 by Afshan Cardenas RN, RN Amended: Links added.
--- NOTE | 2021-11-29 11:37 | NUR ---
PT ,ET A;; DC CRITERIA. IV DC'D WITH CATHETER INTACT. DC INSTRUCTIONS REVIEWED WITH PT, PT VERBALIZED UNDERSTANDING WITH NO FURTHER QUESTIONS AT THIS TIME. PT TAKEN OUT OF HOSPITAL IN WHEELCHAIR TO PRIVATE VEHHICLE WHERE PT SISTER WAS WAITING. Addendum: 11/29/21 at 1312 by Afshan Cardenas RN, RN Amended: Links added.
== END 2021-11-29 11:37 | disposition home or self-care (01) ==
LOC: PAS 05:46
PROVIDERS: ATTEND Surgery
DX: K40.90 Unilateral inguinal hernia, without obstruction or gangrene, not specified as recurrent (principal); D17.6 Benign lipomatous neoplasm of spermatic cord; K21.9 Gastro-esophageal reflux disease without esophagitis; I48.91 Unspecified atrial fibrillation; G62.9 Polyneuropathy, unspecified; G43.909 Migraine, unspecified, not intractable, without status migrainosus; N40.0 Benign prostatic hyperplasia without lower urinary tract symptoms; I12.9 Hypertensive chronic kidney disease with stage 1 through stage 4 chronic kidney disease, or unspecified chronic kidney disease; N18.9 Chronic kidney disease, unspecified; Z20.822 Contact with and (suspected) exposure to COVID-19; Z88.8 Allergy status to other drugs, medicaments and biological substances; Z88.5 Allergy status to narcotic agent; Z91.09 Other allergy status, other than to drugs and biological substances; Z79.899 Other long term (current) drug therapy; Z79.01 Long term (current) use of anticoagulants; Z95.0 Presence of cardiac pacemaker; Z98.890 Other specified postprocedural states
CPT/HCPCS: 36415; 49505; 80053; 82948; 85025; 85610; 85730; C1781; J0690; J2250; J2704; J3010; J3490; J7030; J7120; U0003; U0005; Z7506; Z7508; Z7512; A4215; A4618; A7000

== ENCOUNTER 2021-12-16 06:11 | Day surgery (SDC) | payer MEDICARE, OTHER ==
[2021-12-09 15:46] LABS: BASOPHILS # (AUTO) 0.1 X10'3 (0-0.2); BASOPHILS % (AUTO) 1.2 % (0-1); EOSINOPHILS # (AUTO) 0.2 X10'3 (0-0.9); EOSINOPHILS % (AUTO) 4.3 % (0-6); LYMPHOCYTES # (AUTO) 2.1 X10'3 (1.1-4.8); LYMPHOCYTES % (AUTO) 35.6 % (21-51); MEAN CORPUSCULAR HEMOGLOBIN 32.2 PG (27.0-31.0); MEAN CORPUSCULAR HGB CONC 34.2 g/dL (33.0-36.5); MEAN CORPUSCULAR VOLUME 94.3 FL (78-98); MEAN PLATELET VOLUME 7.5 FL (7.4-10.4); MONOCYTES # (AUTO) 0.6 X10'3 (0-0.9); MONOCYTES % (AUTO) 9.9 % (2-12); NEUTROPHILS # (AUTO) 2.8 X10'3 (1.8-7.7); PRE OP HEMATOCRIT 42.5 % (42.0-52.0); PRE OP HEMOGLOBIN 14.5 g/dL (14.0-17.9); PRE OP PLATELET COUNT 167 X10'3 (140-440); RED BLOOD COUNT 4.51 X10'6 (4.70-6.10); RED CELL DISTRIBUTION WIDTH 13.9 % (11.5-14.5)
[2021-12-09 16:08] LABS: ALBUMIN 3.6 G/DL (3.4-5.0); ALBUMIN/GLOBULIN RATIO 1.6 (1.1-1.5); ALKALINE PHOSPHATASE 73 IU/L (46-116); BLOOD UREA NITROGEN 27 MG/DL (7-18); BUN/CREATININE RATIO 19.7 (5.4-32.0); CALCIUM 8.6 MG/DL (8.5-10.1); CHLORIDE 108 MMOL/L (99-107); CREATININE 1.37 MG/DL (0.60-1.10); PRE OP ALT 37 U/L (30-65); PRE OP ANION GAP 7 (8-16); PRE OP AST 26 U/L (10-37); PRE OP BILIRUB, TOTAL 0.4 MG/DL (0.0-1.0); PRE OP GLUCOSE 104 MG/DL (70-104); PRE OP POTASSIUM 4.7 MMOL/L (3.4-5.1); PRE OP SODIUM 142 MMOL/L (135-145); TOTAL CARBON DIOXIDE 26.8 MMOL/L (24-32); TOTAL PROTEIN 5.9 G/DL (6.4-8.2); eGFR 50 ML/MIN
[2021-12-09 16:40] LABS: APTT 42 SECONDS (22-32)
[~2021-12-16] VITALS: Ht 185.4 cm; Wt 92.4 kg
[~2021-12-16 06:11] MED LIST changes: -cefazolin/dext.iso 2gm/50ml 50 ML IV ONE; +cefazolin/dext.iso 2gm/50ml IV ONE
[2021-12-16 06:40] VITALS: BP 122/76
[2021-12-16] MEDS ORDERED: BUPIVAcaine 0.5% inj/PF 30 ML ONE (06:41)
[2021-12-16] MEDS ORDERED: BUPIVAcaine 0.5% inj/PF 30 ml vial IJ ONE (07:07)
[2021-12-16] MEDS ORDERED: LIDOcaine 1% 30ml preserv. free vial ONE (07:35)
[2021-12-16] MEDS ORDERED: midazolam 1 mg/ML 2ml injection ONE (08:46)
[2021-12-16] MEDS ORDERED: fentaNYL/PF 50MCG/1 ML 2ML syringe ONE (08:46)
[2021-12-16 09:08] VITALS: BP 130/82
--- NOTE | 2021-12-16 09:08 | NUR ---
Received from OR via AG[facility]IN , accompanied by Anesthesiologist ANI and report given by Anesthesiolgist. PATIENT WTIH SPLINT TO RIGHT WRIST THAT IS CDI. FINGERS PWD, DENIES PAIN AT THIS TIME. PATTIENT WITH 20G PIV IN LEFT UE RUNNING LR AT 100. VSS Addendum: 12/16/21 at 0919 by Héctor Cardenas RN, RN Amended: Links added.
[2021-12-16 09:10] VITALS: BP 123/84
[2021-12-16] MEDS ORDERED: ondansetron/PF 4mg/2ml inj IV PRN (09:10)
[2021-12-16] MEDS ORDERED: proCHLORperazine 10 MG/2 ml inj IV PRN (09:10)
[2021-12-16] MEDS ORDERED: ringers solution, lacted 1,000 ML IV SCH (09:10)
[2021-12-16] MEDS ORDERED: meperidine/PF 25mg/ml syringe IV PRN ×3 (09:10)
[2021-12-16 09:20] VITALS: BP 124/81
[2021-12-16 09:30] VITALS: BP 123/82
[2021-12-16 09:40] VITALS: BP 131/81
--- NOTE | 2021-12-16 09:48 | NUR ---
ALL DISCHARGE CRITERIA HAS BEEN MET. VSS, PAIN AT A TOLERABLE LEVEL, VOIDING AND ABLE TO SAFELY AMBULATE AND TRANSFER SELF. IV TAKEN OUT WITHOUT ANY COMPLICATIONS. ALL DISCHARGE INSTRUCTIONS COVERED WITH PATIENT AND ALL QUESTIONS ANSWERED. PATIENT TAKEN OUT VIA WHEELCHAIR TO PERSONAL VEHICLE WHERE FAMILY/FRIEND DROVE PATIENT HOME. Addendum: 12/16/21 at 0953 by Héctor Cardenas RN, RN Amended: Links added.
== END 2021-12-16 09:48 | disposition home or self-care (01) ==
LOC: PAS 06:11
PROVIDERS: ATTEND Orthopaedic Surgery Hand Surgery
DX: M65.331 Trigger finger, right middle finger (principal); M65.341 Trigger finger, right ring finger; I25.10 Atherosclerotic heart disease of native coronary artery without angina pectoris; F41.9 Anxiety disorder, unspecified; G89.4 Chronic pain syndrome; M19.011 Primary osteoarthritis, right shoulder; M96.1 Postlaminectomy syndrome, not elsewhere classified; M17.12 Unilateral primary osteoarthritis, left knee; G43.909 Migraine, unspecified, not intractable, without status migrainosus; N40.0 Benign prostatic hyperplasia without lower urinary tract symptoms; K21.9 Gastro-esophageal reflux disease without esophagitis; Z20.822 Contact with and (suspected) exposure to COVID-19; Z79.899 Other long term (current) drug therapy; Z79.01 Long term (current) use of anticoagulants; Z88.8 Allergy status to other drugs, medicaments and biological substances; Z88.5 Allergy status to narcotic agent; Z91.09 Other allergy status, other than to drugs and biological substances; Z96.651 Presence of right artificial knee joint; Z98.890 Other specified postprocedural states; Z72.89 Other problems related to lifestyle; Z95.0 Presence of cardiac pacemaker; Z81.8 Family history of other mental and behavioral disorders; Z83.49 Family history of other endocrine, nutritional and metabolic diseases
CPT/HCPCS: 26055; 36415; 80053; 82948; 85025; 85610; 85730; J0690; J2250; J3010; J3490; J7030; J7120; S0020; U0003; U0005; Z7506; Z7512; A4215; A6449

== ENCOUNTER 2021-12-22 08:46 | Outpatient (CLI) | payer MEDICARE, OTHER ==
[~2021-12-22 08:46] MED LIST changes: -DOCUMENT DATE & TIME OF BETA-BLOCKER PO ONE; -cefazolin/dext.iso 2gm/50ml IV ONE; -famotidine 20mg tablet PO ONE; -ringers solution, lacted 1,000 ML IV SCH
== END 2021-12-22 23:59 | disposition home or self-care (01) ==
LOC: RAD 08:46
DX: M50.10 Cervical disc disorder with radiculopathy, unspecified cervical region (principal); M47.22 Other spondylosis with radiculopathy, cervical region; M48.02 Spinal stenosis, cervical region
CPT/HCPCS: 72141

== ENCOUNTER 2022-02-06 03:31 | Emergency (ER) | payer MEDICARE, OTHER ==
[~2022-02-06] VITALS: Ht 185.4 cm; Wt 93.6 kg
--- NOTE | 2022-02-06 06:30 | NUR ---
Pt sleeping, family at bedside also asleep. No apparent needs or distress at this time.
--- NOTE | 2022-02-06 06:50 | NUR ---
Pt and family still asleep.
[2022-02-06] MEDS ORDERED: ceFAZolin/D5W- 1GM premix 50 ML IV ONE (07:25)
--- NOTE | 2022-02-06 07:45 | NUR ---
Will hold antibiotics until lab draws cultures. at bedside to numb pt for I&D of tooth abscess. Pt updated on care plan. No further needs at this time.
[2022-02-06 08:11] LABS: CLARITY,URINE CLEAR (Clear); COLOR,URINE YELLOW (Yellow); GLUCOSE, URINE NEGATIVE (Neg); KETONES,URINE NEGATIVE (Neg); LEUKOCYTE ESTERASE ,URINE NEGATIVE (Neg); NITRITES, URINE NEGATIVE (Neg); OCCULT BLOOD,URINE NEGATIVE (Neg); PROTEIN,URINE NEGATIVE (Neg); UROBILINOGEN,URINE 0.2 E.U/dL (0.2-1.0)
[2022-02-06 08:11] LABS: BASOPHILS % (AUTO) 0.4 % (0-1); EOSINOPHILS # (AUTO) 0.1 X10'3 (0-0.9); EOSINOPHILS % (AUTO) 0.6 % (0-6); HEMOGLOBIN 15.1 g/dl (14.0-17.9); LYMPHOCYTES # (AUTO) 1.5 X10'3 (1.1-4.8); LYMPHOCYTES % (AUTO) 17.8 % (21-51); MEAN CORPUSCULAR HEMOGLOBIN 31.2 PG (27.0-31.0); MEAN CORPUSCULAR HGB CONC 33.5 g/dL (33.0-36.5); MEAN PLATELET VOLUME 7.8 FL (7.4-10.4); MONOCYTES # (AUTO) 0.9 X10'3 (0-0.9); MONOCYTES % (AUTO) 11.1 % (2-12); NEUTROPHILS # (AUTO) 5.8 X10'3 (1.8-7.7); NEUTROPHILS % (AUTO) 70.1 % (42-75); PLATELET COUNT 166 X10'3 (140-440); RED BLOOD COUNT 4.84 X10'6 (4.70-6.10); RED CELL DISTRIBUTION WIDTH 13.7 % (11.5-14.5); WHITE BLOOD COUNT 8.3 X10'3 (4.5-11.0)
[2022-02-06 08:12] LABS: UA COLLECTION TYPE NON-SPECIFIED
[2022-02-06] MEDS ORDERED: iohexol 300mg/ml 100ml inj. ONE (08:13)
[2022-02-06 08:27] LABS: ALANINE AMINOTRANSFERASE 25 U/L (12-78); ALBUMIN 3.8 G/DL (3.4-5.0); ALBUMIN/GLOBULIN RATIO 1.3 (1.1-1.5); ALKALINE PHOSPHATASE 74 IU/L (46-116); ANION GAP 10 (8-16); ASPARTATE AMINO TRANSFERASE 26 U/L (10-37); BLOOD UREA NITROGEN 17 MG/DL (7-18); BUN/CREATININE RATIO 12.8 (5.4-32.0); CALCIUM 9.2 MG/DL (8.5-10.1); CHLORIDE 106 MMOL/L (99-107); CREATININE 1.33 MG/DL (0.60-1.10); GLUCOSE 124 MG/DL (70-104); SODIUM 140 MMOL/L (135-145); TOTAL CARBON DIOXIDE 24.4 MMOL/L (24-32); TOTAL PROTEIN 6.7 G/DL (6.4-8.2); eGFR 52 ML/MIN
--- NOTE | 2022-02-06 08:40 | NUR ---
CT notified us of positional IV. IV re-taped by CT and is patent and flushes well.
--- NOTE | 2022-02-06 08:46 | NUR ---
Pt back from CT. updated on plan. abx infusing. awaiting I&D.
[2022-02-06] MEDS ORDERED: AMOX-419 PO (08:52)
[2022-02-06] MEDS ORDERED: dexamethasone inj 6 MG in dextrose 5%-water 100 ML IV ONE (10:00)
[2022-02-06] MEDS ORDERED: LIDOcaine 1% W/epiNEPHrine 1:100,000 20ml vial ONE (10:00)
--- NOTE | 2022-02-06 11:45 | NUR ---
[facility]. Awaiting bed. Will send pt POV with IV in place.
--- NOTE | 2022-02-06 12:00 | NUR ---
Chetna gavin started on pt, pt updated on plan of care. Looking for ENT specialist. Addendum: 02/06/22 at 1201 by KCLARKBree Last note at 1030.
[2022-02-06] MEDS ORDERED: WARF-55 PO (12:38)
[2022-02-06] MEDS ORDERED: GABA300C PO (12:38)
[2022-02-06] MEDS ORDERED: METO-384 PO (12:38)
[2022-02-06] MEDS ORDERED: FLO0.4C PO (12:38)
[2022-02-06] MEDS ORDERED: RAMI2.5C54 PO (12:38)
--- NOTE | 2022-02-06 13:28 | NUR ---
Covid swab collected and walked to lab.
[2022-02-06 15:32] VITALS: BP 116/79
== END 2022-02-06 15:35 ==
LOC: ER 03:32
DX: L02.01 Cutaneous abscess of face (principal); Z20.822 Contact with and (suspected) exposure to COVID-19; I48.91 Unspecified atrial fibrillation; K21.9 Gastro-esophageal reflux disease without esophagitis; N40.0 Benign prostatic hyperplasia without lower urinary tract symptoms; G89.29 Other chronic pain; Z95.0 Presence of cardiac pacemaker; Z72.89 Other problems related to lifestyle; Z86.73 Personal history of transient ischemic attack (TIA), and cerebral infarction without residual deficits; Z88.8 Allergy status to other drugs, medicaments and biological substances; Z88.5 Allergy status to narcotic agent; Z79.899 Other long term (current) drug therapy; Z79.01 Long term (current) use of anticoagulants
CPT/HCPCS: 36415; 41800; 70487; 80053; 81003; 83605; 83735; 84145; 85025; 87040; 87635; 93005; 96365; 96367; 99285; C9803; J0690; J1100; J3490; J7060; Q9967

== ENCOUNTER 2022-09-19 18:44 | Inpatient (IN) | payer MEDICARE, OTHER ==
[~2022-09-19] VITALS: Ht 185.4 cm; Wt 89.1 kg
[~2022-09-19 18:44] MED LIST changes: +CELE-85 PO; -GABA-532 PO; +GABA300C PO; -OMEP-84 PO; +OMEP20TA23 PO; +SENN8.6T19 PO; +TRAM50TA2 PO; -VITAMIN D3
[2022-09-19 20:03] LABS: BASOPHILS # (AUTO) 0.1 X10'3 (0-0.2); BASOPHILS % (AUTO) 0.7 % (0-1); EOSINOPHILS # (AUTO) 0.2 X10'3 (0-0.9); EOSINOPHILS % (AUTO) 2.1 % (0-6); HEMATOCRIT 39.3 % (42.0-52.0); HEMOGLOBIN 13.3 g/dl (14.0-17.9); LYMPHOCYTES # (AUTO) 1.2 X10'3 (1.1-4.8); LYMPHOCYTES % (AUTO) 13.8 % (21-51); MEAN CORPUSCULAR HEMOGLOBIN 32.3 PG (27.0-31.0); MEAN CORPUSCULAR HGB CONC 33.9 g/dL (33.0-36.5); MEAN CORPUSCULAR VOLUME 95.3 FL (78-98); MEAN PLATELET VOLUME 7.7 FL (7.4-10.4); MONOCYTES # (AUTO) 1.2 X10'3 (0-0.9); MONOCYTES % (AUTO) 14.2 % (2-12); NEUTROPHILS # (AUTO) 5.9 X10'3 (1.8-7.7); NEUTROPHILS % (AUTO) 69.2 % (42-75); PLATELET COUNT 236 X10'3 (140-440); RED BLOOD COUNT 4.12 X10'6 (4.70-6.10); RED CELL DISTRIBUTION WIDTH 12.8 % (11.5-14.5); WHITE BLOOD COUNT 8.5 X10'3 (4.5-11.0)
[2022-09-19 20:12] LABS: ALANINE AMINOTRANSFERASE 30 U/L (12-78); ALBUMIN 3.2 G/DL (3.4-5.0); ALBUMIN/GLOBULIN RATIO 0.9 (1.1-1.5); ALKALINE PHOSPHATASE 68 IU/L (46-116); ANION GAP 11 (8-16); ASPARTATE AMINO TRANSFERASE 45 U/L (10-37); BILIRUBIN,TOTAL 0.9 MG/DL (0.1-1.0); BLOOD UREA NITROGEN 22 MG/DL (7-18); BUN/CREATININE RATIO 16.7 (5.4-32.0); CHLORIDE 101 MMOL/L (99-107); CREATININE 1.32 MG/DL (0.60-1.10); GLUCOSE 130 MG/DL (70-104); POTASSIUM 3.8 MMOL/L (3.5-5.1); SODIUM 137 MMOL/L (135-145); TOTAL CARBON DIOXIDE 24.7 MMOL/L (24-32); TOTAL PROTEIN 6.8 G/DL (6.4-8.2); eGFR 52 ML/MIN
[2022-09-19] MEDS ORDERED: CefTRIAXone/D5W-Rocephin 1gm 50 ML IV ONE (22:10)
[2022-09-19] MEDS ORDERED: VANCOmycin 1250MG/NS 250ml Bag 250 ML IV ONE (22:15)
[2022-09-19 22:29] LABS: CLARITY,URINE CLEAR (Clear); COLOR,URINE YELLOW (Yellow); GLUCOSE, URINE NEGATIVE (Neg); KETONES,URINE TRACE mg/dl (Neg); LEUKOCYTE ESTERASE ,URINE NEGATIVE (Neg); NITRITES, URINE NEGATIVE (Neg); OCCULT BLOOD,URINE NEGATIVE (Neg); PROTEIN,URINE NEGATIVE (Neg); UROBILINOGEN,URINE 0.2 E.U/dL (0.2-1.0)
[2022-09-19 22:31] LABS: UA COLLECTION TYPE OTHER
[2022-09-19 23:25] LABS: CREATINE KINASE 177 U/L (39-308)
[2022-09-20] MEDS ORDERED: diphenhydrAMINE 50 mg/ml inj IV PRN (03:00)
[2022-09-20] MEDS ORDERED: diphenhydrAMINE 25mg capsule PO PRN (03:00)
[2022-09-20] MEDS ORDERED: acetaminophen 325mg tablet PO PRN ×2 (03:00)
[2022-09-20] MEDS ORDERED: bisacodyl 10mg suppository rectal RC PRN (03:00)
[2022-09-20] MEDS ORDERED: acetaminophen 650mg rectal suppository RC PRN (03:00)
[2022-09-20] MEDS ORDERED: mag hydrox/Alum hydrox/simeth 30ml oral suspension PO PRN (03:00)
[2022-09-20] MEDS ORDERED: ondansetron/PF 4mg/2ml inj IV PRN (03:00)
[2022-09-20] MEDS ORDERED: magnesium hydroxide 30ml (MOM) UD suspension PO PRN (03:00)
[2022-09-20] MEDS ORDERED: ondansetron 4mg rapidly disintigrating tab PO PRN (03:00)
--- NOTE | 2022-09-20 03:30 | NUR ---
ASSUMED CARE. PT IS SLEEPING UNABLE TO ASSESS. EVEN AND UNLABORED RISE OF CHEST.
[2022-09-20] MEDS: normal saline 1000ml 1,000 ML IV SCH ×2 (04:16→14:34)
[2022-09-20] MEDS ORDERED: CIPR500T5 PO (05:07)
--- NOTE | 2022-09-20 06:55 | NUR ---
Patient in room ED 14. I have received report from Soila ELECTRICAL PROJECT ENGINEER Nurse and had the opportunity to ask questions and assume patient care. Nurse did not know much about the pt, could not tell me much about him because she had not had this pt and was just handed to her.
--- NOTE | 2022-09-20 06:56 | NUR ---
Report given to RN Mamie, pt room assignment 350U
[2022-09-20] MEDS: docusate sod 100mg capsule PO SCH ×2 (08:00→22:17)
[2022-09-20 08:07] LABS: APTT 36 SECONDS (22-32)
[2022-09-20 08:31] LABS: PHOSPHORUS 3.2 MG/DL (2.3-4.5)
[2022-09-20] MEDS: heparin, porcine 5000 units/ml vial SQ SCH ×2 (08:42→22:18)
[2022-09-20] MEDS: piperacillin/tazo 4.5gm/100ml 100 ML IV SCH ×2 (08:46→22:16)
[2022-09-20] MEDS ORDERED: sennosides 8.6mg tablet PO PRN (09:40)
[2022-09-20] MEDS ORDERED: traMADol 50MG tablet PO PRN (09:40)
[2022-09-20 10:00] VITALS: BP_SYST 123; BP_SYST 130; BP_DIAS 78; BP_DIAS 79
[2022-09-20] MEDS ORDERED: tamsulosin 0.4mg capsule PO STA (13:24)
[2022-09-20] MEDS ORDERED: gabapentin 300mg capsule PO ONE (13:26)
[2022-09-20] MEDS: pantoprazole 40mg Tablet.DR PO SCH (14:26)
--- NOTE | 2022-09-20 17:59 | NUR ---
PAGER ID: [phone] MESSAGE: Daquan Moffett #[phone] Pt's fluids are running at 100ml/hr. Can I reduce them to 50ml/hr? PBNP 656. Drinking well. Please advise. Basia Zurita [phone]
[2022-09-20 18:00] VITALS: BP 125/86
--- NOTE | 2022-09-20 18:17 | NUR ---
Problems reprioritized. Patient report given, questions answered & plan of care reviewed with Luly COATES.
--- NOTE | 2022-09-20 18:30 | NUR ---
Assumed care of pt, report received from Basia Aponte.
[2022-09-20] MEDS ORDERED: temazepam 15mg capsule PO PRN (21:00)
[2022-09-20 22:00] VITALS: BP 135/73
[2022-09-20] MEDS: gabapentin 300mg capsule PO SCH (22:17)
[2022-09-20] MEDS: ciprofloxacin 250mg tablet PO SCH (22:17)
[2022-09-20] MEDS: celeCOXIB 100mg capsule PO SCH (22:17)
[2022-09-20] MEDS: metoprolol succinate 25mg (24-HOUR) SR. Tablet PO SCH (22:18)
[2022-09-20] MEDS: tamsulosin 0.4mg capsule PO SCH (22:18)
[2022-09-20] MEDS: lisinopril 2.5mg tablet PO SCH (22:19)
[2022-09-20] MEDS: warfarin 5mg tablet PO SCH (22:47)
[2022-09-21] MEDS ORDERED: vancomycin/NS 1 GM ADD-VANTAGE 250 ML IV SCH (01:00)
[2022-09-21] MEDS ORDERED: HYDROcodone/acetaminophen 5mg/325mg tablet PO PRN (01:10)
[2022-09-21] MEDS: HYDROcodone/acetaminophen 10/325mg tab PO PRN ×2 (02:11→20:08)
[2022-09-21] MEDS: normal saline 1000ml 1,000 ML IV SCH ×3 (02:11→19:44)
[2022-09-21 06:00] VITALS: BP 115/73
--- NOTE | 2022-09-21 06:45 | NUR ---
Patient in room [facility] 350. I have received report from Luly COATES and had the opportunity to ask questions and assume patient care.
[2022-09-21 06:46] LABS: EOSINOPHILS % (AUTO) 7.3 % (0-6); HEMATOCRIT 31.5 % (42.0-52.0); HEMOGLOBIN 10.8 g/dl (14.0-17.9); LYMPHOCYTES % (AUTO) 28.2 % (21-51); MEAN CORPUSCULAR HEMOGLOBIN 32.6 PG (27.0-31.0); MEAN CORPUSCULAR HGB CONC 34.3 g/dL (33.0-36.5); MEAN CORPUSCULAR VOLUME 94.9 FL (78-98); MEAN PLATELET VOLUME 7.7 FL (7.4-10.4); MONOCYTES % (AUTO) 13.9 % (2-12); NEUTROPHILS % (AUTO) 48.7 % (42-75); PLATELET COUNT 230 X10'3 (140-440); RED BLOOD COUNT 3.32 X10'6 (4.70-6.10); WHITE BLOOD COUNT 6.3 X10'3 (4.5-11.0)
[2022-09-21 06:47] LABS: BASOPHILS # (AUTO) 0.1 X10'3 (0-0.2); BASOPHILS % (AUTO) 1.9 % (0-1); EOSINOPHILS # (AUTO) 0.5 X10'3 (0-0.9); LYMPHOCYTES # (AUTO) 1.8 X10'3 (1.1-4.8); MONOCYTES # (AUTO) 0.9 X10'3 (0-0.9); NEUTROPHILS # (AUTO) 3.1 X10'3 (1.8-7.7)
[2022-09-21 07:06] LABS: ALANINE AMINOTRANSFERASE 26 U/L (12-78); ALBUMIN 2.2 G/DL (3.4-5.0); ALBUMIN/GLOBULIN RATIO 0.8 (1.1-1.5); ALKALINE PHOSPHATASE 55 IU/L (46-116); ANION GAP 7 (8-16); ASPARTATE AMINO TRANSFERASE 38 U/L (10-37); BILIRUBIN,TOTAL 0.6 MG/DL (0.1-1.0); BLOOD UREA NITROGEN 23 MG/DL (7-18); BUN/CREATININE RATIO 19.3 (5.4-32.0); CALCIUM 8.4 MG/DL (8.5-10.1); CHLORIDE 105 MMOL/L (99-107); CREATININE 1.19 MG/DL (0.60-1.10); GLUCOSE 102 MG/DL (70-104); POTASSIUM 3.9 MMOL/L (3.5-5.1); SODIUM 135 MMOL/L (135-145); TOTAL CARBON DIOXIDE 23.2 MMOL/L (24-32); TOTAL PROTEIN 4.9 G/DL (6.4-8.2); eGFR 59 ML/MIN
[2022-09-21] MEDS: piperacillin/tazo 4.5gm/100ml 100 ML IV SCH (08:22)
[2022-09-21] MEDS: docusate sod 100mg capsule PO SCH ×2 (08:27→19:53)
[2022-09-21] MEDS: celeCOXIB 100mg capsule PO SCH ×2 (08:27→19:54)
[2022-09-21] MEDS: gabapentin 300mg capsule PO SCH ×2 (08:27→19:54)
[2022-09-21] MEDS: pantoprazole 40mg Tablet.DR PO SCH (08:27)
[2022-09-21] MEDS: ciprofloxacin 250mg tablet PO SCH (08:27)
[2022-09-21] MEDS: heparin, porcine 5000 units/ml vial SQ SCH ×2 (08:28→19:57)
--- NOTE | 2022-09-21 09:40 | NUR ---
Lab called to alert that pt. had positive blood culture drawn on 09/19/22 from IV start, arobic bottle 38hrs showing gram negative rods. notified.
[2022-09-21 10:58] VITALS: BP 89/69
[2022-09-21 11:11] VITALS: BP 117/69
[2022-09-21] MEDS: CefTRIAXone 2gm/D5W 50ml BAG 50 ML IV SCH (11:26)
[2022-09-21 18:00] VITALS: BP 114/60
--- NOTE | 2022-09-21 18:29 | NUR ---
Problems reprioritized. Patient report given, questions answered & plan of care reviewed with Janeth COATES.
--- NOTE | 2022-09-21 19:24 | NUR ---
Patient in room [facility] 350. I have received report from Deena COATES and had the opportunity to ask questions and assume patient care.
[2022-09-21] MEDS: metoprolol succinate 25mg (24-HOUR) SR. Tablet PO SCH (19:54)
[2022-09-21] MEDS: tamsulosin 0.4mg capsule PO SCH (19:54)
[2022-09-21] MEDS: lisinopril 2.5mg tablet PO SCH (19:55)
[2022-09-21] MEDS: warfarin 5mg tablet PO SCH (19:56)
[2022-09-21 22:00] VITALS: BP 107/70
--- NOTE | 2022-09-22 05:56 | NUR ---
patient c/o pain in left knee medicated with Emerson with good results. patient slept most of shift.
[2022-09-22] MEDS: normal saline 1000ml 1,000 ML IV SCH (05:59)
[2022-09-22 06:00] VITALS: BP 124/74
--- NOTE | 2022-09-22 06:30 | NUR ---
Problems reprioritized. Patient report given, questions answered & plan of care reviewed with Albino COATES.
[2022-09-22 06:40] LABS: BASOPHILS # (AUTO) 0.1 X10'3 (0-0.2); EOSINOPHILS # (AUTO) 0.5 X10'3 (0-0.9); HEMOGLOBIN 10.9 g/dl (14.0-17.9); LYMPHOCYTES # (AUTO) 1.7 X10'3 (1.1-4.8); MEAN PLATELET VOLUME 7.5 FL (7.4-10.4); MONOCYTES # (AUTO) 0.7 X10'3 (0-0.9); WHITE BLOOD COUNT 5.1 X10'3 (4.5-11.0)
[2022-09-22 06:43] LABS: BASOPHILS % (AUTO) 2.1 % (0-1); HEMATOCRIT 31.8 % (42.0-52.0); LYMPHOCYTES % (AUTO) 33.7 % (21-51); MEAN CORPUSCULAR HGB CONC 34.3 g/dL (33.0-36.5); MEAN CORPUSCULAR VOLUME 96.3 FL (78-98); MONOCYTES % (AUTO) 13.2 % (2-12); NEUTROPHILS # (AUTO) 2.1 X10'3 (1.8-7.7); PLATELET COUNT 245 X10'3 (140-440); RED CELL DISTRIBUTION WIDTH 12.9 % (11.5-14.5)
[2022-09-22 07:15] LABS: ALANINE AMINOTRANSFERASE 24 U/L (12-78); ALBUMIN 2.2 G/DL (3.4-5.0); ALBUMIN/GLOBULIN RATIO 0.8 (1.1-1.5); ALKALINE PHOSPHATASE 55 IU/L (46-116); ANION GAP 5 (8-16); ASPARTATE AMINO TRANSFERASE 28 U/L (10-37); BILIRUBIN,TOTAL 0.4 MG/DL (0.1-1.0); BLOOD UREA NITROGEN 24 MG/DL (7-18); BUN/CREATININE RATIO 20.3 (5.4-32.0); CALCIUM 8.3 MG/DL (8.5-10.1); CHLORIDE 104 MMOL/L (99-107); CREATININE 1.18 MG/DL (0.60-1.10); GLUCOSE 109 MG/DL (70-104); POTASSIUM 4.1 MMOL/L (3.5-5.1); SODIUM 136 MMOL/L (135-145); TOTAL CARBON DIOXIDE 26.6 MMOL/L (24-32); TOTAL PROTEIN 4.9 G/DL (6.4-8.2); eGFR 60 ML/MIN
[2022-09-22] MEDS: CefTRIAXone 2gm/D5W 50ml BAG 50 ML IV SCH (08:38)
[2022-09-22] MEDS: pantoprazole 40mg Tablet.DR PO SCH (08:39)
[2022-09-22] MEDS: celeCOXIB 100mg capsule PO SCH ×2 (08:39→20:16)
[2022-09-22] MEDS: gabapentin 300mg capsule PO SCH ×2 (08:39→20:16)
[2022-09-22] MEDS: docusate sod 100mg capsule PO SCH ×2 (08:39→20:00)
[2022-09-22] MEDS: heparin, porcine 5000 units/ml vial SQ SCH ×2 (08:39→20:16)
[2022-09-22 10:00] VITALS: BP 119/68
--- NOTE | 2022-09-22 12:44 | NUR ---
promotional table spacer promotional table spacer Page Sent promotional table spacer PAGER ID: [phone] MESSAGE: please call re 350B Daquan Moffett midline/Discharge Thank You. Albino COATES
[2022-09-22 18:00] VITALS: BP 125/62
--- NOTE | 2022-09-22 18:00 | NUR ---
Patient in room [facility] 350. I have received report from JAXON Posada and had the opportunity to ask questions and assume patient care.
[2022-09-22 20:14] VITALS: BP 126/75
[2022-09-22] MEDS: metoprolol succinate 25mg (24-HOUR) SR. Tablet PO SCH (20:16)
[2022-09-22] MEDS: tamsulosin 0.4mg capsule PO SCH (20:16)
[2022-09-22] MEDS: warfarin 5mg tablet PO SCH (20:20)
[2022-09-22 22:00] VITALS: BP 131/67
[2022-09-23] MEDS ORDERED: VANCOMYCIN LEVEL IV ONE (00:30)
[2022-09-23 06:00] VITALS: BP 124/80
--- NOTE | 2022-09-23 06:07 | NUR ---
Problems reprioritized. Patient report given, questions answered & plan of care reviewed with JAXON Posada.
[2022-09-23 06:30] LABS: BASOPHILS # (AUTO) 0.1 X10'3 (0-0.2); EOSINOPHILS # (AUTO) 0.4 X10'3 (0-0.9); HEMOGLOBIN 11.5 g/dl (14.0-17.9); LYMPHOCYTES # (AUTO) 1.6 X10'3 (1.1-4.8); LYMPHOCYTES % (AUTO) 29.2 % (21-51); MEAN PLATELET VOLUME 7.5 FL (7.4-10.4); MONOCYTES # (AUTO) 0.7 X10'3 (0-0.9); NEUTROPHILS # (AUTO) 2.7 X10'3 (1.8-7.7); WHITE BLOOD COUNT 5.6 X10'3 (4.5-11.0)
[2022-09-23 06:32] LABS: BASOPHILS % (AUTO) 1.4 % (0-1); EOSINOPHILS % (AUTO) 7.6 % (0-6); HEMATOCRIT 33.4 % (42.0-52.0); MEAN CORPUSCULAR HEMOGLOBIN 32.8 PG (27.0-31.0); MEAN CORPUSCULAR HGB CONC 34.6 g/dL (33.0-36.5); MEAN CORPUSCULAR VOLUME 94.9 FL (78-98); NEUTROPHILS % (AUTO) 48.8 % (42-75); PLATELET COUNT 280 X10'3 (140-440); RED BLOOD COUNT 3.52 X10'6 (4.70-6.10); RED CELL DISTRIBUTION WIDTH 12.8 % (11.5-14.5)
[2022-09-23 06:37] LABS: ALANINE AMINOTRANSFERASE 25 U/L (12-78); ALBUMIN 2.4 G/DL (3.4-5.0); ALBUMIN/GLOBULIN RATIO 0.8 (1.1-1.5); ALKALINE PHOSPHATASE 58 IU/L (46-116); ANION GAP 8 (8-16); ASPARTATE AMINO TRANSFERASE 29 U/L (10-37); BILIRUBIN,TOTAL 0.4 MG/DL (0.1-1.0); BLOOD UREA NITROGEN 19 MG/DL (7-18); BUN/CREATININE RATIO 17.1 (5.4-32.0); CALCIUM 8.7 MG/DL (8.5-10.1); CHLORIDE 106 MMOL/L (99-107); CREATININE 1.11 MG/DL (0.60-1.10); GLUCOSE 101 MG/DL (70-104); POTASSIUM 4.3 MMOL/L (3.5-5.1); SODIUM 138 MMOL/L (135-145); TOTAL CARBON DIOXIDE 24.4 MMOL/L (24-32); TOTAL PROTEIN 5.3 G/DL (6.4-8.2); eGFR 64 ML/MIN
[2022-09-23] MEDS: gabapentin 300mg capsule PO SCH ×2 (07:57→20:01)
[2022-09-23] MEDS: pantoprazole 40mg Tablet.DR PO SCH (07:57)
[2022-09-23] MEDS: celeCOXIB 100mg capsule PO SCH ×2 (07:57→20:02)
[2022-09-23] MEDS: docusate sod 100mg capsule PO SCH ×2 (07:59→20:00)
[2022-09-23] MEDS: heparin, porcine 5000 units/ml vial SQ SCH ×2 (08:00→20:02)
--- NOTE | 2022-09-23 08:06 | NUR ---
Student Medication Administration: For this medication-pass time frame, all medication were reviewed, dispensed, administered and documented per hospital policy by yemi love student nurse with lottie simeon instructor RN.
[2022-09-23] MEDS: CefTRIAXone 2gm/D5W 50ml BAG 50 ML IV SCH (08:34)
[2022-09-23 18:00] VITALS: BP 124/76
[2022-09-23 19:57] VITALS: BP 115/59
[2022-09-23] MEDS: warfarin 5mg tablet PO SCH (20:04)
[2022-09-23] MEDS: tamsulosin 0.4mg capsule PO SCH (20:08)
[2022-09-23] MEDS: metoprolol succinate 25mg (24-HOUR) SR. Tablet PO SCH (20:08)
[2022-09-23 22:00] VITALS: BP 99/55
[2022-09-24] MEDS: HYDROcodone/acetaminophen 10/325mg tab PO PRN (01:24)
--- NOTE | 2022-09-24 04:22 | NUR ---
Pt. walked 300F with nursing.He did very well
[2022-09-24 06:00] VITALS: BP 124/66
--- NOTE | 2022-09-24 06:07 | NUR ---
Problems reprioritized. Patient report given, questions answered & plan of care reviewed with JAXON Ricketts.
[2022-09-24 06:41] LABS: BASOPHILS # (AUTO) 0.1 X10'3 (0-0.2); BASOPHILS % (AUTO) 1.4 % (0-1); EOSINOPHILS # (AUTO) 0.4 X10'3 (0-0.9); EOSINOPHILS % (AUTO) 7.6 % (0-6); HEMATOCRIT 33.7 % (42.0-52.0); HEMOGLOBIN 11.5 g/dl (14.0-17.9); LYMPHOCYTES # (AUTO) 1.8 X10'3 (1.1-4.8); LYMPHOCYTES % (AUTO) 32.2 % (21-51); MEAN CORPUSCULAR HEMOGLOBIN 32.4 PG (27.0-31.0); MEAN CORPUSCULAR VOLUME 95.3 FL (78-98); MEAN PLATELET VOLUME 7.7 FL (7.4-10.4); MONOCYTES # (AUTO) 0.7 X10'3 (0-0.9); MONOCYTES % (AUTO) 13.1 % (2-12); NEUTROPHILS # (AUTO) 2.6 X10'3 (1.8-7.7); NEUTROPHILS % (AUTO) 45.7 % (42-75); PLATELET COUNT 278 X10'3 (140-440); RED BLOOD COUNT 3.54 X10'6 (4.70-6.10); RED CELL DISTRIBUTION WIDTH 12.9 % (11.5-14.5); WHITE BLOOD COUNT 5.7 X10'3 (4.5-11.0)
--- NOTE | 2022-09-24 06:45 | NUR ---
Patient in room [facility] 350B. I have received report from JAXON ALVARENGA and had the opportunity to ask questions and assume patient care.
[2022-09-24 06:55] LABS: ALANINE AMINOTRANSFERASE 22 U/L (12-78); ALBUMIN 2.5 G/DL (3.4-5.0); ALBUMIN/GLOBULIN RATIO 0.9 (1.1-1.5); ALKALINE PHOSPHATASE 59 IU/L (46-116); ANION GAP 9 (8-16); ASPARTATE AMINO TRANSFERASE 23 U/L (10-37); BILIRUBIN,TOTAL 0.3 MG/DL (0.1-1.0); BLOOD UREA NITROGEN 22 MG/DL (7-18); BUN/CREATININE RATIO 20.8 (5.4-32.0); CALCIUM 8.7 MG/DL (8.5-10.1); CHLORIDE 106 MMOL/L (99-107); CREATININE 1.06 MG/DL (0.60-1.10); GLUCOSE 100 MG/DL (70-104); POTASSIUM 4.1 MMOL/L (3.5-5.1); SODIUM 140 MMOL/L (135-145); TOTAL CARBON DIOXIDE 24.9 MMOL/L (24-32); TOTAL PROTEIN 5.3 G/DL (6.4-8.2); eGFR 67 ML/MIN
--- NOTE | 2022-09-24 09:25 | NUR ---
Initial: Pt admitted w/ sepsis and recent TKA per EMR. Currently on Regular diet w/ mostly 100% intake of meals, though was about 50% on 09/22. Will provide double protein BID to assist w/ meeting increased needs. LBM 09/23 receiving routine colace. Will continue to monitor. Recs: 1. Continue Regular diet as tolerated 2. Double protein BIDBD 3. Bowel care per rx 4. Scaled wts Addendum: 09/24/22 at [address] Amended: Links added.
[2022-09-24 10:00] VITALS: BP 125/62
[2022-09-24] MEDS: pantoprazole 40mg Tablet.DR PO SCH (10:06)
[2022-09-24] MEDS: celeCOXIB 100mg capsule PO SCH ×2 (10:06→19:57)
[2022-09-24] MEDS: gabapentin 300mg capsule PO SCH ×2 (10:06→19:57)
[2022-09-24] MEDS: heparin, porcine 5000 units/ml vial SQ SCH ×2 (10:06→19:58)
[2022-09-24] MEDS: CefTRIAXone 2gm/D5W 50ml BAG 50 ML IV SCH (10:11)
[2022-09-24] MEDS: docusate sod 100mg capsule PO SCH ×2 (10:11→19:57)
--- NOTE | 2022-09-24 18:56 | NUR ---
Problems reprioritized. Patient report given, questions answered & plan of care reviewed with JAXON MEDRANO.
[2022-09-24 19:00] VITALS: BP 123/78
[2022-09-24] MEDS: warfarin 5mg tablet PO SCH (19:59)
[2022-09-24 22:00] VITALS: BP 128/74
[2022-09-24] MEDS: metoprolol succinate 25mg (24-HOUR) SR. Tablet PO SCH (22:04)
[2022-09-24] MEDS: tamsulosin 0.4mg capsule PO SCH (22:05)
[2022-09-25 05:36] LABS: EOSINOPHILS # (AUTO) 0.5 X10'3 (0-0.9); HEMATOCRIT 33.9 % (42.0-52.0); HEMOGLOBIN 11.6 g/dl (14.0-17.9); LYMPHOCYTES # (AUTO) 1.9 X10'3 (1.1-4.8); MEAN CORPUSCULAR HGB CONC 34.3 g/dL (33.0-36.5); MONOCYTES # (AUTO) 0.8 X10'3 (0-0.9); MONOCYTES % (AUTO) 12.2 % (2-12); WHITE BLOOD COUNT 6.4 X10'3 (4.5-11.0)
[2022-09-25 05:40] LABS: BASOPHILS # (AUTO) 0.1 X10'3 (0-0.2); BASOPHILS % (AUTO) 1.4 % (0-1); EOSINOPHILS % (AUTO) 7.9 % (0-6); LYMPHOCYTES % (AUTO) 30.3 % (21-51); MEAN CORPUSCULAR HEMOGLOBIN 32.5 PG (27.0-31.0); MEAN CORPUSCULAR VOLUME 94.9 FL (78-98); MEAN PLATELET VOLUME 7.5 FL (7.4-10.4); NEUTROPHILS # (AUTO) 3.1 X10'3 (1.8-7.7); NEUTROPHILS % (AUTO) 48.2 % (42-75); PLATELET COUNT 284 X10'3 (140-440); RED BLOOD COUNT 3.57 X10'6 (4.70-6.10); RED CELL DISTRIBUTION WIDTH 13.2 % (11.5-14.5)
--- NOTE | 2022-09-25 05:59 | NUR ---
Problems reprioritized. Patient report given, questions answered & plan of care reviewed with LUKE. Addendum: 09/25/22 at 0600 by Bay Mcdowell RN Amended: Links added.
[2022-09-25 06:00] VITALS: BP 113/71
[2022-09-25 06:09] LABS: ALANINE AMINOTRANSFERASE 19 U/L (12-78); ALBUMIN 2.5 G/DL (3.4-5.0); ALBUMIN/GLOBULIN RATIO 0.9 (1.1-1.5); ALKALINE PHOSPHATASE 64 IU/L (46-116); ASPARTATE AMINO TRANSFERASE 29 U/L (10-37); BILIRUBIN,TOTAL 0.3 MG/DL (0.1-1.0); BLOOD UREA NITROGEN 24 MG/DL (7-18); BUN/CREATININE RATIO 20.9 (5.4-32.0); CALCIUM 8.7 MG/DL (8.5-10.1); CREATININE 1.15 MG/DL (0.60-1.10); GLUCOSE 103 MG/DL (70-104); TOTAL CARBON DIOXIDE 25.7 MMOL/L (24-32); TOTAL PROTEIN 5.4 G/DL (6.4-8.2); eGFR 61 ML/MIN
[2022-09-25 06:15] LABS: ANION GAP 7 (8-16); CHLORIDE 104 MMOL/L (99-107); POTASSIUM 4.4 MMOL/L (3.5-5.1); SODIUM 137 MMOL/L (135-145)
--- NOTE | 2022-09-25 06:17 | NUR ---
Patient in room [facility] 350B. I have received report from JAXON MEDRANO and had the opportunity to ask questions and assume patient care.
[2022-09-25] MEDS: docusate sod 100mg capsule PO SCH ×2 (08:00→20:00)
[2022-09-25] MEDS: CefTRIAXone 2gm/D5W 50ml BAG 50 ML IV SCH (08:21)
[2022-09-25] MEDS: pantoprazole 40mg Tablet.DR PO SCH (08:22)
[2022-09-25] MEDS: heparin, porcine 5000 units/ml vial SQ SCH ×2 (08:23→20:00)
[2022-09-25] MEDS: gabapentin 300mg capsule PO SCH ×2 (08:24→21:46)
[2022-09-25] MEDS: celeCOXIB 100mg capsule PO SCH ×2 (08:24→21:45)
[2022-09-25 10:00] VITALS: BP 117/71
--- NOTE | 2022-09-25 18:17 | NUR ---
Problems reprioritized. Patient report given, questions answered & plan of care reviewed with JAXON MEDRANO.
[2022-09-25 19:20] VITALS: BP 107/73
[2022-09-25] MEDS: metoprolol succinate 25mg (24-HOUR) SR. Tablet PO SCH (21:46)
[2022-09-25] MEDS: tamsulosin 0.4mg capsule PO SCH (21:46)
[2022-09-25] MEDS: warfarin 5mg tablet PO SCH (21:47)
[2022-09-25 22:00] VITALS: BP 101/50
[2022-09-26 06:00] VITALS: BP 134/71
--- NOTE | 2022-09-26 06:14 | NUR ---
Patient in room [facility] 350B. I have received report from JAXON MEDRANO and had the opportunity to ask questions and assume patient care.
--- NOTE | 2022-09-26 06:30 | NUR ---
Problems reprioritized. Patient report given, questions answered & plan of care reviewed with LUKE. Addendum: 09/26/22 at 0631 by Bay Mcdowell RN Amended: Links added.
[2022-09-26] MEDS: celeCOXIB 100mg capsule PO SCH (07:50)
[2022-09-26] MEDS: gabapentin 300mg capsule PO SCH (07:50)
[2022-09-26] MEDS: CefTRIAXone 2gm/D5W 50ml BAG 50 ML IV SCH (07:50)
[2022-09-26] MEDS: pantoprazole 40mg Tablet.DR PO SCH (07:50)
[2022-09-26] MEDS: heparin, porcine 5000 units/ml vial SQ SCH (07:51)
[2022-09-26] MEDS: docusate sod 100mg capsule PO SCH (07:51)
[2022-09-26] MEDS ORDERED: LACT1CAP26 PO (08:46)
[2022-09-26] MEDS ORDERED: CIPR-202 PO (08:49)
[2022-09-26 11:00] VITALS: BP 105/69
--- NOTE | 2022-09-26 14:00 | NUR ---
PATIENT STABLE AND APPROPRIATE FOR DISCHARGE, IV REMOVED, EDUCATION GIVEN, WALKER GIVEN, ALL BELONGINGS SENT WITH PATIENT, PATIENT TAKEN TO LOBBY BY WHEELCHAIR TO AN AWAITING CAR WHERE FRIEND WILL TAKE PATIENT HOME
--- NOTE | 2022-10-04 09:22 | NUR ---
Case Management DC follow up: Spoke with Patient via telephone. S/P: Patient Reports:Denies: Acute/continuous C/P, emergent SOB, resp distress, orthopnea, dyspnea, vomiting.Verbalizes he had a few bouts of nausea.Denies: Weakness, vertigo, syncope episodes, orthostatic hypotension, BARR[place], blurry vision, s/s of stroke/BE-FAST, dysphagia, bladder pain, dysuria, polyuria, hematuria, retention.Verbalizes he is taking his antibiotic as prescribed.Denies abdominal pain/distention, hematochezia, melena, unexplained bruising, bleeding, fever, chills and/or diaphoresis.Verbalized [facility] and [facility]R was 1.9.Verbalizes he has another appointment [facility].Verbalizes compliance with aftercare; uses Incentive Spirometer, exercises as per Physical Therapist.Verbalizes understanding of new Rx:, why prescribed;continues/resumes current Rx as ordered.Verbalizes his knee incision swollen; however, verbalizes swelling has receded.Denies s/s of infection at knee incision site; No redness, warmth to touch, bad odor and/or drainage.Verbalizes understanding of s/s that warrant a 07-16/ER visit for further evaluation. Verbalizes he has seen 10/03/22.Verbalizes he has seen and has another appointment scheduled for 10/24/22Verbalizes he has called 's office and is waiting for office to call back with appointment date.Verbalized [facility] is getting [facility] information from hospital to schedule a follow up appointment.Verbalizes [facility] nurse has called and expected today.Verbalizes Physical Therapist comes three time a week.Verbalizes nursing staff did a good job.Needs met, questions/concerns addressed at DC.No further questions/concerns regarding recent hospital stay and/or DC status at this time.
== END 2022-09-26 13:55 | disposition home health service (06) | DRG 872 ==
LOC: ER 18:44 → ED HOLD 09-20 03:02 → SUR 3N 09-20 07:45
PROVIDERS: ADMIT Family Medicine; ATTEND Family Medicine
DX: A41.50 Gram-negative sepsis, unspecified (principal); L03.116 Cellulitis of left lower limb; N13.8 Other obstructive and reflux uropathy; N17.9 Acute kidney failure, unspecified; I13.0 Hypertensive heart and chronic kidney disease with heart failure and stage 1 through stage 4 chronic kidney disease, or unspecified chronic kidney disease; I50.30 Unspecified diastolic (congestive) heart failure; I48.91 Unspecified atrial fibrillation; N40.1 Benign prostatic hyperplasia with lower urinary tract symptoms; E86.1 Hypovolemia; G89.4 Chronic pain syndrome; Z96.653 Presence of artificial knee joint, bilateral; K21.9 Gastro-esophageal reflux disease without esophagitis; M54.9 Dorsalgia, unspecified; M17.12 Unilateral primary osteoarthritis, left knee; R91.1 Solitary pulmonary nodule; M25.462 Effusion, left knee; R33.9 Retention of urine, unspecified; R30.0 Dysuria; D64.9 Anemia, unspecified; R82.4 Acetonuria; N18.30 Chronic kidney disease, stage 3 unspecified; Z79.01 Long term (current) use of anticoagulants; Z86.73 Personal history of transient ischemic attack (TIA), and cerebral infarction without residual deficits; Z95.0 Presence of cardiac pacemaker; Z88.8 Allergy status to other drugs, medicaments and biological substances; Z88.5 Allergy status to narcotic agent; Z79.899 Other long term (current) drug therapy; Z82.49 Family history of ischemic heart disease and other diseases of the circulatory system; Z82.5 Family history of asthma and other chronic lower respiratory diseases
CPT/HCPCS: 36415; 71045; 80053; 81003; 82550; 83605; 83735; 83880; 84100; 84145; 84443; 85025; 85610; 85730; 87040; 87077; 87081; 87186; 93005; 93306; 97110; 97116; 97161; 97530; 99285; G0378; J0696; J1644; J2543; J3370; J7030; J7040

== ENCOUNTER 2022-10-10 17:00 | Emergency (ER) | payer MEDICARE, OTHER ==
[~2022-10-10] VITALS: Ht 185.4 cm; Wt 89.1 kg
[~2022-10-10 17:00] MED LIST changes: +CIPR-202 PO; +LACT1CAP26 PO
[2022-10-10] MEDS ORDERED: normal saline 1000ML IV soln IVB ONE (17:45)
[2022-10-10 17:46] LABS: BASOPHILS # (AUTO) 0.1 X10'3 (0-0.2); BASOPHILS % (AUTO) 0.6 % (0-1); EOSINOPHILS # (AUTO) 0.3 X10'3 (0-0.9); EOSINOPHILS % (AUTO) 3.1 % (0-6); HEMATOCRIT 36.8 % (42.0-52.0); HEMOGLOBIN 12.3 g/dl (14.0-17.9); LYMPHOCYTES # (AUTO) 2.1 X10'3 (1.1-4.8); LYMPHOCYTES % (AUTO) 25.2 % (21-51); MEAN CORPUSCULAR HEMOGLOBIN 31.6 PG (27.0-31.0); MEAN CORPUSCULAR HGB CONC 33.5 g/dL (33.0-36.5); MEAN CORPUSCULAR VOLUME 94.2 FL (78-98); MEAN PLATELET VOLUME 7.3 FL (7.4-10.4); MONOCYTES # (AUTO) 0.9 X10'3 (0-0.9); MONOCYTES % (AUTO) 10.6 % (2-12); NEUTROPHILS # (AUTO) 5.1 X10'3 (1.8-7.7); NEUTROPHILS % (AUTO) 60.5 % (42-75); PLATELET COUNT 219 X10'3 (140-440); WHITE BLOOD COUNT 8.4 X10'3 (4.5-11.0)
[2022-10-10 17:58] LABS: ALANINE AMINOTRANSFERASE 18 U/L (12-78); ALBUMIN 3.2 G/DL (3.4-5.0); ALKALINE PHOSPHATASE 68 IU/L (46-116); ANION GAP 9 (8-16); ASPARTATE AMINO TRANSFERASE 25 U/L (10-37); BILIRUBIN,TOTAL 0.4 MG/DL (0.1-1.0); BLOOD UREA NITROGEN 27 MG/DL (7-18); BUN/CREATININE RATIO 17.2 (5.4-32.0); CALCIUM 9.2 MG/DL (8.5-10.1); CHLORIDE 102 MMOL/L (99-107); CREATININE 1.57 MG/DL (0.60-1.10); GLUCOSE 115 MG/DL (70-104); POTASSIUM 3.8 MMOL/L (3.5-5.1); SODIUM 135 MMOL/L (135-145); TOTAL CARBON DIOXIDE 23.8 MMOL/L (24-32); TOTAL PROTEIN 6.4 G/DL (6.4-8.2); eGFR 43 ML/MIN
--- NOTE | 2022-10-10 18:12 | NUR ---
PT AO4 DENIES DIZZINESS/LIGHTHEADEDNESS. DENIES SOB AND CP. SKIN W/D/I PINK. AMBULATORY WITH CANE. SPEAKS CLEARLY AND IN COMPLETE SENTENCES.
--- NOTE | 2022-10-10 18:28 | NUR ---
report to vanessa leary for continuation of care
[2022-10-10 20:16] VITALS: BP 104/73
== END 2022-10-10 20:21 | disposition home or self-care (01) ==
LOC: ER 17:01
DX: I95.9 Hypotension, unspecified (principal); E86.0 Dehydration; I48.91 Unspecified atrial fibrillation; K21.9 Gastro-esophageal reflux disease without esophagitis; G89.29 Other chronic pain; Z86.73 Personal history of transient ischemic attack (TIA), and cerebral infarction without residual deficits; Z95.0 Presence of cardiac pacemaker; Z98.890 Other specified postprocedural states; Z72.89 Other problems related to lifestyle; Z88.8 Allergy status to other drugs, medicaments and biological substances; Z88.5 Allergy status to narcotic agent; Z79.2 Long term (current) use of antibiotics; Z79.899 Other long term (current) drug therapy
CPT/HCPCS: 36415; 71045; 80053; 83880; 84484; 85025; 93005; 93971; 96360; 99285; J7030

== ENCOUNTER 2023-01-25 10:39 | Emergency (ER) | payer MEDICARE, OTHER ==
[~2023-01-25] VITALS: Ht 185.4 cm; Wt 89.1 kg
[2023-01-25 12:09] VITALS: BP 104/72
[2023-01-25 12:13] LABS: BASOPHILS % (AUTO) 0.3 % (0-1); EOSINOPHILS # (AUTO) 0.2 X10'3 (0-0.9); EOSINOPHILS % (AUTO) 1.6 % (0-6); HEMATOCRIT 45.3 % (42.0-52.0); HEMOGLOBIN 15.1 g/dl (14.0-17.9); LYMPHOCYTES # (AUTO) 1.7 X10'3 (1.1-4.8); LYMPHOCYTES % (AUTO) 16.2 % (21-51); MEAN CORPUSCULAR HEMOGLOBIN 31.1 PG (27.0-31.0); MEAN CORPUSCULAR HGB CONC 33.3 g/dL (33.0-36.5); MEAN CORPUSCULAR VOLUME 93.4 FL (78-98); MONOCYTES # (AUTO) 1.1 X10'3 (0-0.9); MONOCYTES % (AUTO) 10.3 % (2-12); NEUTROPHILS # (AUTO) 7.4 X10'3 (1.8-7.7); NEUTROPHILS % (AUTO) 71.6 % (42-75); PLATELET COUNT 201 X10'3 (140-440); RED BLOOD COUNT 4.85 X10'6 (4.70-6.10); RED CELL DISTRIBUTION WIDTH 16.2 % (11.5-14.5); WHITE BLOOD COUNT 10.4 X10'3 (4.5-11.0)
[2023-01-25 12:34] LABS: ALANINE AMINOTRANSFERASE 34 U/L (12-78); ALBUMIN 3.7 G/DL (3.4-5.0); ALBUMIN/GLOBULIN RATIO 1.3 (1.1-1.5); ALKALINE PHOSPHATASE 81 IU/L (46-116); ANION GAP 6 (8-16); ASPARTATE AMINO TRANSFERASE 28 U/L (10-37); BLOOD UREA NITROGEN 22 MG/DL (7-18); BUN/CREATININE RATIO 16.2 (10.0-20.0); CALCIUM 9.1 MG/DL (8.5-10.1); CHLORIDE 104 MMOL/L (99-107); CREATININE 1.36 MG/DL (0.60-1.10); GLUCOSE 106 MG/DL (70-104); LIPASE 69 U/L (73-393); POTASSIUM 4.5 MMOL/L (3.5-5.1); SODIUM 137 MMOL/L (135-145); TOTAL CARBON DIOXIDE 26.9 MMOL/L (24-32); TOTAL PROTEIN 6.6 G/DL (6.4-8.2); eGFR 50 ML/MIN
[2023-01-25] MEDS ORDERED: AMOX-117 PO (13:40)
[2023-01-25] MEDS ORDERED: HYDR-3965 PO (13:40)
[2023-01-25] MEDS ORDERED: ONDA4TAB12 PO (13:40)
--- NOTE | 2023-01-25 13:47 | NUR ---
PT ASSESSMENT DONE BY GREGORY CISNEROS.
== END 2023-01-25 13:50 | disposition home or self-care (01) ==
LOC: ER 10:40
DX: K57.92 Diverticulitis of intestine, part unspecified, without perforation or abscess without bleeding (principal); I51.9 Heart disease, unspecified; K21.9 Gastro-esophageal reflux disease without esophagitis; G89.29 Other chronic pain; M54.9 Dorsalgia, unspecified; Z90.49 Acquired absence of other specified parts of digestive tract; Z88.8 Allergy status to other drugs, medicaments and biological substances; Z88.5 Allergy status to narcotic agent; Z79.899 Other long term (current) drug therapy; Z79.1 Long term (current) use of non-steroidal anti-inflammatories (NSAID); Z79.2 Long term (current) use of antibiotics
CPT/HCPCS: 36415; 74176; 80053; 83690; 85025; 99284

== ENCOUNTER 2023-10-12 11:56 | Outpatient (CLI) | payer MEDICARE, OTHER ==
[~2023-10-12 11:56] MED LIST changes: +CELE-127 PO; -CELE-85 PO; +ONDA4TAB12 PO
[2023-10-12 12:48] LABS: BASOPHILS # (AUTO) 0.1 X10'3 (0-0.2); EOSINOPHILS # (AUTO) 0.2 X10'3 (0-0.9); EOSINOPHILS % (AUTO) 2.9 % (0-6); HEMATOCRIT 42.2 % (42.0-52.0); LYMPHOCYTES # (AUTO) 1.6 X10'3 (1.1-4.8); MEAN CORPUSCULAR HEMOGLOBIN 32.1 PG (27.0-31.0); MEAN CORPUSCULAR HGB CONC 33.2 g/dL (33.0-36.5); MEAN CORPUSCULAR VOLUME 96.6 FL (78-98); MEAN PLATELET VOLUME 7.6 FL (7.4-10.4); MONOCYTES # (AUTO) 0.7 X10'3 (0-0.9); MONOCYTES % (AUTO) 10.4 % (2-12); NEUTROPHILS # (AUTO) 3.8 X10'3 (1.8-7.7); NEUTROPHILS % (AUTO) 60.7 % (42-75); PLATELET COUNT 194 X10'3 (140-440); RED BLOOD COUNT 4.37 X10'6 (4.70-6.10); RED CELL DISTRIBUTION WIDTH 14.1 % (11.5-14.5); WHITE BLOOD COUNT 6.3 X10'3 (4.5-11.0)
[2023-10-12 12:52] LABS: APTT 37 SECONDS (22-32); INR 1.6 INR
[2023-10-12 12:56] LABS: ALBUMIN 3.3 G/DL (3.4-5.0); ANION GAP 8 (8-16); BLOOD UREA NITROGEN 18 MG/DL (7-18); BUN/CREATININE RATIO 12.8 (10.0-20.0); CALCIUM 8.4 MG/DL (8.5-10.1); CHLORIDE 104 MMOL/L (99-107); CHOLESTEROL 162 MG/DL (0-200); CREATININE 1.41 MG/DL (0.60-1.10); GLUCOSE 88 MG/DL (70-104); HDL CHOLESTEROL 82 MG/DL (35-60); LDL CHOLESTEROL 66 MG/DL (50-100); POTASSIUM 4.3 MMOL/L (3.5-5.1); SODIUM 138 MMOL/L (135-145); TOTAL CARBON DIOXIDE 26.5 MMOL/L (24-32); TRIGLYCERIDES 86 MG/DL (20-135); eGFR 48 ML/MIN
[2023-10-12 12:58] LABS: PROTHROMBIN TIME 16.8 SECONDS (9.0-12.0)
== END 2023-10-12 23:59 | disposition home or self-care (01) ==
LOC: LAB 11:56
PROVIDERS: ATTEND Internal Medicine Interventional Cardiology
DX: I11.9 Hypertensive heart disease without heart failure (principal); I48.91 Unspecified atrial fibrillation; E78.5 Hyperlipidemia, unspecified
CPT/HCPCS: 36415; 80048; 80061; 85025; 85610; 85730

== ENCOUNTER 2023-10-16 12:12 | Day surgery (SDC) | payer MEDICARE, OTHER ==
[~2023-10-16] VITALS: Ht 185.4 cm; Wt 92.2 kg
[2023-10-16] VITALS (7 sets, daily range): BP systolic 108–145; BP diastolic 62–84; PULSE 61–87; RESP 15–16; TEMP 97.8; O2SAT 94–97
[2023-10-16] MEDS ORDERED: diphenhydrAMINE 25mg capsule PO PRN (12:50)
[2023-10-16] MEDS ORDERED: LORazepam 0.5 MG tablet PO PRN (12:50)
[2023-10-16] MEDS ORDERED: normal saline 1,000 ML IV SCH (12:50)
[2023-10-16] MEDS ORDERED: ENOX40SY7 SUBCUT (12:53)
[2023-10-16 13:31] LABS: INR 1.1 INR; PROTHROMBIN TIME 11.6 SECONDS (9.0-12.0)
[2023-10-16] MEDS ORDERED: iohexol 350MG/ML 100ml bottle IV ONE (15:36)
[2023-10-16] MEDS ORDERED: midazolam 1 mg/ML 2ml injection ONE (15:36)
[2023-10-16] MEDS ORDERED: fentaNYL/PF 50MCG/1 ML 2ML syringe ONE (15:36)
[2023-10-16] MEDS ORDERED: verapamil 2.5 mg/ml inj IV ONE (15:36)
[2023-10-16] MEDS ORDERED: heparin 1,000unit/ml 10ml vial 10 ML ONE (15:36)
[2023-10-16] MEDS ORDERED: LIDOcaine 1% (10mg/ml) 2ml vial ONE (15:36)
[2023-10-16] MEDS ORDERED: nitroGLYCERIN 500mcg/5mL D5W 5 ML IV ONE (15:38)
[2023-10-16] MEDS ORDERED: hydrocortisone sod succ/PF 100mg/2ml inj. ONE (16:11)
[2023-10-16] MEDS ORDERED: HYDROcodone/acetaminophen 10/325mg tab PO PRN (17:10)
[2023-10-16] MEDS ORDERED: HYDROcodone/acetaminophen 5mg/325mg tablet PO PRN (17:10)
== END 2023-10-16 18:37 | disposition home or self-care (01) ==
LOC: SSTAY O 12:12
PROVIDERS: ATTEND Student in an Organized Health Care Education/Training Program
DX: R94.39 Abnormal result of other cardiovascular function study (principal); I95.1 Orthostatic hypotension; I48.91 Unspecified atrial fibrillation; I42.0 Dilated cardiomyopathy; Z88.5 Allergy status to narcotic agent; I71.20 Thoracic aortic aneurysm, without rupture, unspecified; I44.1 Atrioventricular block, second degree; I35.1 Nonrheumatic aortic (valve) insufficiency; I49.5 Sick sinus syndrome; I11.0 Hypertensive heart disease with heart failure; I50.9 Heart failure, unspecified; Z88.8 Allergy status to other drugs, medicaments and biological substances; Z91.048 Other nonmedicinal substance allergy status; Z95.0 Presence of cardiac pacemaker; Z86.73 Personal history of transient ischemic attack (TIA), and cerebral infarction without residual deficits; Z79.01 Long term (current) use of anticoagulants; Z79.899 Other long term (current) drug therapy
CPT/HCPCS: 36415; 85610; 93005; 93458; 99152; A6258; J1644; J1720; J2250; J3010; J3490; J7030; Q0163; Q9967; 96360; A6402; C1894

== ENCOUNTER 2024-01-07 06:27 | Day surgery (SDC) | payer MEDICARE, OTHER ==
[2024-01-03 13:46] LABS: BASOPHILS % (AUTO) 0.5 % (0-1); EOSINOPHILS # (AUTO) 0.3 X10'3 (0-0.9); EOSINOPHILS % (AUTO) 3.9 % (0-6); LYMPHOCYTES # (AUTO) 2.5 X10'3 (1.1-4.8); LYMPHOCYTES % (AUTO) 29.8 % (21-51); MEAN CORPUSCULAR HEMOGLOBIN 32.2 PG (27.0-31.0); MEAN CORPUSCULAR HGB CONC 33.3 g/dL (33.0-36.5); MEAN CORPUSCULAR VOLUME 96.7 FL (78-98); MEAN PLATELET VOLUME 7.5 FL (7.4-10.4); MONOCYTES # (AUTO) 0.8 X10'3 (0-0.9); MONOCYTES % (AUTO) 9.6 % (2-12); NEUTROPHILS # (AUTO) 4.8 X10'3 (1.8-7.7); NEUTROPHILS % (AUTO) 56.2 % (42-75); PRE OP HEMATOCRIT 43.5 % (42.0-52.0); PRE OP HEMOGLOBIN 14.5 g/dL (14.0-17.9); PRE OP PLATELET COUNT 180 X10'3 (140-440); PRE OP WHITE BLOOD COUNT 8.5 10'3 (4.8-10.8); RED CELL DISTRIBUTION WIDTH 13.8 % (11.5-14.5)
[2024-01-03 14:04] LABS: PRE OP PROTIME 16.9 SECONDS (9.0-12.0)
[2024-01-03 14:13] LABS: PRE OP INR 1.6 INR
[2024-01-03 14:15] LABS: ALBUMIN 3.6 G/DL (3.4-5.0); ALBUMIN/GLOBULIN RATIO 1.4 (1.1-1.5); ALKALINE PHOSPHATASE 91 IU/L (46-116); BLOOD UREA NITROGEN 30 MG/DL (7-18); BUN/CREATININE RATIO 21.3 (10.0-20.0); CALCIUM 8.7 MG/DL (8.5-10.1); CHLORIDE 106 MMOL/L (99-107); CREATININE 1.41 MG/DL (0.60-1.10); PRE OP ALT 32 U/L (30-65); PRE OP ANION GAP 10 (8-16); PRE OP AST 27 U/L (10-37); PRE OP BILIRUB, TOTAL 0.6 MG/DL (0.0-1.0); PRE OP GLUCOSE 95 MG/DL (70-104); PRE OP POTASSIUM 4.5 MMOL/L (3.4-5.1); PRE OP SODIUM 141 MMOL/L (135-145); TOTAL CARBON DIOXIDE 24.7 MMOL/L (24-32); TOTAL PROTEIN 6.1 G/DL (6.4-8.2); eGFR 48 ML/MIN
[~2024-01-07] VITALS: Ht 185.4 cm; Wt 93.0 kg
[2024-01-07] VITALS (9 sets, daily range): BP systolic 113–143; BP diastolic 73–88; PULSE 60–67; RESP 10–17; TEMP 98.1; O2SAT 93–97
[2024-01-07] MEDS: famotidine 20mg tablet PO ONE (05:30)
[2024-01-07] MEDS: cefazolin 2gm/D5W 100mL 100 ML IV ONE (06:24)
[~2024-01-07 06:27] MED LIST changes: -CELE-127 PO; -CIPR-202 PO; +DIME50TA90 PO; -LACT1CAP26 PO; -METO-384 PO; -ONDA4TAB12 PO; -RAMI2.5C54 PO; -SENN8.6T19 PO; -TRAM50TA2 PO; +ringers solution, lacted 1,000 ML IV SCH
[2024-01-07] MEDS ORDERED: BUPIVAcaine/PF 2.5mg/ml (0.25%) 10ml vial ONE (07:02)
[2024-01-07] MEDS ORDERED: LIDOcaine 2% (20mg/ml) 5ml vial ONE (07:02)
[2024-01-07] MEDS ORDERED: meperidine/PF 25mg/ml syringe IV PRN ×3 (08:00)
[2024-01-07] MEDS ORDERED: proCHLORperazine 10 MG/2 ml inj IV PRN (08:00)
[2024-01-07] MEDS ORDERED: ondansetron/PF 4mg/2ml inj IV PRN (08:00)
[2024-01-07] MEDS ORDERED: ringers solution, lacted 1,000 ML IV SCH (08:00)
[2024-01-07] MEDS ORDERED: fentaNYL/PF 50MCG/1 ML 2ML syringe ONE (09:02)
[2024-01-07] MEDS ORDERED: propofol inj 20 ML IV ONE (09:06)
[2024-01-07] MEDS: BUPIVAcaine/PF 2.5mg/ml (0.25%) 10ml vial IJ ONE (09:14)
[2024-01-07] MEDS: LIDOcaine 2% (20mg/ml) 5ml vial SQ ONE (09:15)
== END 2024-01-07 10:44 | disposition home or self-care (01) ==
LOC: PAS 06:27
PROVIDERS: ATTEND Orthopaedic Surgery Hand Surgery
DX: G56.01 Carpal tunnel syndrome, right upper limb (principal); I12.9 Hypertensive chronic kidney disease with stage 1 through stage 4 chronic kidney disease, or unspecified chronic kidney disease; N18.9 Chronic kidney disease, unspecified; E78.5 Hyperlipidemia, unspecified; I48.91 Unspecified atrial fibrillation; G43.909 Migraine, unspecified, not intractable, without status migrainosus; K21.9 Gastro-esophageal reflux disease without esophagitis; M19.90 Unspecified osteoarthritis, unspecified site; Z86.73 Personal history of transient ischemic attack (TIA), and cerebral infarction without residual deficits; Z86.718 Personal history of other venous thrombosis and embolism; Z87.442 Personal history of urinary calculi; Z79.01 Long term (current) use of anticoagulants; Z79.899 Other long term (current) drug therapy; Z95.0 Presence of cardiac pacemaker; Z96.653 Presence of artificial knee joint, bilateral; Z98.49 Cataract extraction status, unspecified eye; Z98.890 Other specified postprocedural states; Z88.5 Allergy status to narcotic agent; Z88.8 Allergy status to other drugs, medicaments and biological substances; Z81.8 Family history of other mental and behavioral disorders; Z83.49 Family history of other endocrine, nutritional and metabolic diseases
CPT/HCPCS: 36415; 64721; 80053; 82948; 85025; 85610; 85730; J0690; J2704; J3010; J3490; J7030; J7120; Z7506; Z7512; A4215; A6449

== ENCOUNTER 2024-07-17 13:04 | Outpatient (CLI) | payer MEDICARE, OTHER ==
[~2024-07-17 13:04] MED LIST changes: -ringers solution, lacted 1,000 ML IV SCH
== END 2024-07-17 23:59 | disposition home or self-care (01) ==
LOC: VAS 13:04
PROVIDERS: ATTEND Physician Assistant Medical
DX: Z13.6 Encounter for screening for cardiovascular disorders (principal); I72.8 Aneurysm of other specified arteries
CPT/HCPCS: 93978

== ENCOUNTER 2024-09-15 08:01 | Day surgery (SDC) | payer MEDICARE, OTHER ==
[2024-09-08 15:07] LABS: BASOPHILS # (AUTO) 0.1 X10'3 (0-0.2); BASOPHILS % (AUTO) 1.2 % (0-1); EOSINOPHILS # (AUTO) 0.2 X10'3 (0-0.9); EOSINOPHILS % (AUTO) 3.5 % (0-6); LYMPHOCYTES % (AUTO) 28.2 % (21-51); MEAN CORPUSCULAR HEMOGLOBIN 32.1 PG (27.0-31.0); MEAN CORPUSCULAR HGB CONC 33.5 g/dL (33.0-36.5); MEAN PLATELET VOLUME 8.5 FL (7.4-10.4); MONOCYTES # (AUTO) 0.6 X10'3 (0-0.9); MONOCYTES % (AUTO) 8.1 % (2-12); NEUTROPHILS # (AUTO) 4.1 X10'3 (1.8-7.7); PRE OP HEMATOCRIT 41.5 % (42.0-52.0); PRE OP HEMOGLOBIN 13.9 g/dL (14.0-17.9); PRE OP PLATELET COUNT 142 X10'3 (140-440); PRE OP WHITE BLOOD COUNT 6.9 10'3 (4.8-10.8); RED BLOOD COUNT 4.33 X10'6 (4.70-6.10); RED CELL DISTRIBUTION WIDTH 14.4 % (11.5-14.5)
[2024-09-08 15:19] LABS: ALBUMIN 3.5 G/DL (3.4-5.0); ALBUMIN/GLOBULIN RATIO 1.3 (1.1-1.5); ALKALINE PHOSPHATASE 83 IU/L (46-116); BLOOD UREA NITROGEN 21 MG/DL (7-18); BUN/CREATININE RATIO 13.7 (10.0-20.0); CALCIUM 8.4 MG/DL (8.5-10.1); CHLORIDE 102 MMOL/L (99-107); CREATININE 1.53 MG/DL (0.60-1.10); PRE OP ALT 19 U/L (30-65); PRE OP ANION GAP 5 (8-16); PRE OP AST 25 U/L (10-37); PRE OP BILIRUB, TOTAL 0.7 MG/DL (0.0-1.0); PRE OP GLUCOSE 95 MG/DL (70-104); PRE OP POTASSIUM 4.2 MMOL/L (3.4-5.1); PRE OP SODIUM 133 MMOL/L (135-145); TOTAL PROTEIN 6.1 G/DL (6.4-8.2); eGFR 44 ML/MIN
[2024-09-15] VITALS (9 sets, daily range): BP systolic 106–122; BP diastolic 64–75; PULSE 56–71; RESP 14–18; TEMP 98.3; O2SAT 93–97
[~2024-09-15] VITALS: Ht 185.4 cm; Wt 92.4 kg
[~2024-09-15 08:01] MED LIST changes: -DIME50TA90 PO
[2024-09-15] MEDS: famotidine 20mg tablet PO ONE (09:17)
[2024-09-15] MEDS: ringers solution, lacted 1,000 ML IV SCH (09:18)
[2024-09-15] MEDS: clindamycin-Cleocin 900mg/D5W 50 ML IV ONE (09:18)
[2024-09-15] MEDS ORDERED: LIDOcaine 1% 30ml preserv. free vial ONE (09:59)
[2024-09-15 10:12] LABS: INR 1.4 INR; PRE OP PARTIAL THROMB. TIME 33 SECONDS (22-32); PROTHROMBIN TIME 14.7 SECONDS (9.0-12.0)
[2024-09-15] MEDS ORDERED: BUPIVAcaine/PF 2.5mg/ml (0.25%) 10ml vial ONE (11:20)
[2024-09-15] MEDS ORDERED: midazolam 1 mg/ML 2ml injection ONE (11:34)
[2024-09-15] MEDS ORDERED: fentaNYL/PF 50MCG/1 ML 2ML syringe ONE (11:34)
[2024-09-15] MEDS ORDERED: acetaminophen 1,000mg/100ml IV 100 ML IV ONE (12:45)
== END 2024-09-15 14:05 | disposition home or self-care (01) ==
LOC: PAS 08:01
PROVIDERS: ATTEND Orthopaedic Surgery Hand Surgery
DX: G56.01 Carpal tunnel syndrome, right upper limb (principal); M67.431 Ganglion, right wrist; N18.9 Chronic kidney disease, unspecified; I48.91 Unspecified atrial fibrillation; E78.5 Hyperlipidemia, unspecified; G43.909 Migraine, unspecified, not intractable, without status migrainosus; K21.9 Gastro-esophageal reflux disease without esophagitis; M19.90 Unspecified osteoarthritis, unspecified site; Z86.73 Personal history of transient ischemic attack (TIA), and cerebral infarction without residual deficits; Z86.718 Personal history of other venous thrombosis and embolism; Z79.01 Long term (current) use of anticoagulants; Z79.891 Long term (current) use of opiate analgesic; Z79.899 Other long term (current) drug therapy; Z96.653 Presence of artificial knee joint, bilateral; Z95.0 Presence of cardiac pacemaker; Z98.49 Cataract extraction status, unspecified eye; Z98.890 Other specified postprocedural states; Z88.0 Allergy status to penicillin; Z88.5 Allergy status to narcotic agent; Z88.8 Allergy status to other drugs, medicaments and biological substances
CPT/HCPCS: 25111; 36415; 64721; 80053; 82948; 85025; 85610; 85730; 93005; A4215; A6449; C9353; J0131; J2003; J2250; J3010; J3490; J7030; J7120; Z7506; Z7508; Z7512; Z7610; 88304

== ENCOUNTER 2024-10-05 13:15 | Emergency (ER) | payer MEDICARE, OTHER ==
[~2024-10-05] VITALS: Ht 185.4 cm; Wt 85.0 kg
[2024-10-05 13:25] VITALS: BP 112/72; PULSE 64; RESP 16; O2SAT 92
[2024-10-05 16:00] VITALS: TEMP 98.1
== END 2024-10-05 16:02 | disposition home or self-care (01) ==
LOC: ER 13:15
DX: S80.11XA Contusion of right lower leg, initial encounter (principal); I48.91 Unspecified atrial fibrillation; K21.9 Gastro-esophageal reflux disease without esophagitis; G89.29 Other chronic pain; M54.9 Dorsalgia, unspecified; Z72.89 Other problems related to lifestyle; Z95.0 Presence of cardiac pacemaker; Z98.890 Other specified postprocedural states; Z86.73 Personal history of transient ischemic attack (TIA), and cerebral infarction without residual deficits; Z88.8 Allergy status to other drugs, medicaments and biological substances; Z88.5 Allergy status to narcotic agent; Z88.0 Allergy status to penicillin; Z79.01 Long term (current) use of anticoagulants; Z79.899 Other long term (current) drug therapy; Z86.718 Personal history of other venous thrombosis and embolism; W01.0XXA Fall on same level from slipping, tripping and stumbling without subsequent striking against object, initial encounter; Y93.89 Activity, other specified; Y92.89 Other specified places as the place of occurrence of the external cause; Y99.0 Civilian activity done for income or pay
CPT/HCPCS: 73590; 93971; 99284

== ENCOUNTER 2025-01-06 11:53 | Emergency (ER) | payer MEDICARE, OTHER ==
[~2025-01-06] VITALS: Ht 185.4 cm; Wt 94.4 kg
[~2025-01-06 11:53] MED LIST changes: +LACT1CAP26 PO; +MULT-1085 PO
[2025-01-06 11:56] VITALS: BP 153/79; PULSE 86; TEMP 97.8; O2SAT 96
[2025-01-06] MEDS ORDERED: HYDR-3965 PO (14:12)
[2025-01-06] MEDS ORDERED: METH4TAB81 PO (14:12)
[2025-01-06] MEDS: dexamethasone 4mg/ml inj IM STA (14:14)
[2025-01-06 14:15] VITALS: RESP 18
[2025-01-06] MEDS: oxyCODONE IR 5mg (immed. release) tablet PO STA (14:15)
== END 2025-01-06 14:41 | disposition home or self-care (01) ==
LOC: ER 11:54
DX: M65.4 Radial styloid tenosynovitis [de Quervain] (principal); I48.91 Unspecified atrial fibrillation; K21.9 Gastro-esophageal reflux disease without esophagitis; Z86.73 Personal history of transient ischemic attack (TIA), and cerebral infarction without residual deficits; Z88.0 Allergy status to penicillin; Z88.5 Allergy status to narcotic agent; Z88.8 Allergy status to other drugs, medicaments and biological substances; Z95.0 Presence of cardiac pacemaker; Z96.653 Presence of artificial knee joint, bilateral
CPT/HCPCS: 73110; 96372; 99283; J1100

== ENCOUNTER 2025-04-24 11:01 | Outpatient (CLI) | payer MEDICARE, OTHER ==
[2025-04-23 13:02] LABS: ALBUMIN 3.5 G/DL (3.4-5.0); ANION GAP 5 (8-16); BLOOD UREA NITROGEN 25 MG/DL (7-18); BUN/CREATININE RATIO 18.2 (10.0-20.0); CALCIUM 8.8 MG/DL (8.5-10.1); CHLORIDE 107 MMOL/L (99-107); CREATININE 1.37 MG/DL (0.60-1.10); GLUCOSE 97 MG/DL (70-104); POTASSIUM 4.5 MMOL/L (3.5-5.1); SODIUM 140 MMOL/L (135-145); eGFR 50 ML/MIN
[~2025-04-24 11:01] MED LIST changes: +METH4TAB81 PO
[2025-04-24] MEDS ORDERED: iohexol 350MG/ML 100ml bottle IV ONE (11:24)
--- NOTE | 2025-04-24 12:35 | RADIOLOGY REPORT ---
Indication: ANEURYSM OF ILIAC ARTERY Technique: CT axial images of the chest are obtained with intravenous contrast per CT angiogram prot ocol. Coronal and sagittal reformats were obtained. Radiation Dose Information: CTDI volume is 20 mGy. Dose-length product is 930 mGy*cm Comparison: None FINDINGS: The heart is normal in size. Ascending aorta measures 5.5 by 5.6 cm. The descending thoracic aorta me asures approximately 2.9 x 3.1 cm. No supraclavicular, axillary lymphadenopathy. Trachea patent. No pneumothorax. No pulmonary airspace consolidation. Esophageal distention. Small hiatal hernia. Postsurgical changes of the anterior abdominal wall. Colonic diverticula. Moderate volume stool in t he colon. Moderate thoracic degenerative disc disease. Thoracic kyphosis. IMPRESSION: Aneurysmal dilatation of the ascending aorta to 5.6 x 5.5 cm. Recommend thoracic surgery consultatio n for further management. Mild dilatation of the descending thoracic aorta to 3.1 cm. Esophageal distention. Small hiatal hernia. Other findings as described Please note this examination is only a CT of the chest. The abdominal aorta and iliac arteries were not characterized
== END 2025-04-24 23:59 | disposition home or self-care (01) ==
LOC: RAD 11:01
PROVIDERS: ATTEND Student in an Organized Health Care Education/Training Program
DX: I77.811 Abdominal aortic ectasia (principal); I72.3 Aneurysm of iliac artery; I70.213 Atherosclerosis of native arteries of extremities with intermittent claudication, bilateral legs; I79.0 Aneurysm of aorta in diseases classified elsewhere; K57.30 Diverticulosis of large intestine without perforation or abscess without bleeding; M51.34 Other intervertebral disc degeneration, thoracic region; M40.294 Other kyphosis, thoracic region; K44.9 Diaphragmatic hernia without obstruction or gangrene; K22.89 Other specified disease of esophagus
CPT/HCPCS: 36415; 71275; 80048; Q9967

== ENCOUNTER 2025-06-09 09:47 | Day surgery (SDC) | payer MEDICARE, OTHER ==
[2025-06-05 11:14] LABS: APTT 37 SECONDS (22-32); INR 2.0 INR
[2025-06-05 11:16] LABS: CHOL/HDL RATIO 2.3 (0.00-4.99); CREATININE 1.37 MG/DL (0.60-1.10); LDL CHOLESTEROL 80 MG/DL (50-100); MEAN PLATELET VOLUME 7.3 FL (7.4-10.4); RED CELL DISTRIBUTION WIDTH 14.8 % (11.5-14.5); TOTAL CARBON DIOXIDE 26.9 MMOL/L (24-32); eGFR 50 ML/MIN
[2025-06-09] VITALS (9 sets, daily range): BP systolic 120–140; BP diastolic 69–89; PULSE 64–76; RESP 13–16; TEMP 98.1; O2SAT 94–97
[~2025-06-09] VITALS: Ht 185.4 cm; Wt 91.8 kg
[2025-06-09] MEDS ORDERED: ENOX150D4 SUBCUT (10:13)
[2025-06-09] MEDS ORDERED: METO25TA6 PO (10:13)
--- NOTE | 2025-06-09 10:21 | ELECTROCARDIOGRAPH REPORT ---
[facility] Test Date: 2025-06-09 Test Time: 10:15:51 Pat Name: KAREN PUGA Department: [facility] Patient ID: [id number] Room: Gender: M Chiropractic Physician: BEBE : [id number] Requested By: BILLY RENTERIA Order Number: [id number] Reading MD: Dr. JUNI Valdes Measurements Intervals [place] Rate: 77 P: 0 OH: 108 QRS: 257 QRSD: 179 T: 109 QT: 428 QTc: 485 Interpretive Statements A-V dual-paced rhythm with some inhibition No further analysis attempted due to paced rhythm Baseline wander in lead(s) V6 Electronically Signed On 06-09-2025 17:26:[address] JUNI Valdes Please click the below link to view image of tracing.
[2025-06-09 11:54] LABS: APTT 38 SECONDS (22-32); INR 1.1 INR
[2025-06-09] MEDS ORDERED: midazolam 1 mg/ML 2ml injection ONE (14:03)
[2025-06-09] MEDS ORDERED: verapamil 2.5 mg/ml inj IV ONE (14:03)
[2025-06-09] MEDS ORDERED: LIDOcaine 1% (10mg/ml) 2ml vial ONE (14:03)
[2025-06-09] MEDS ORDERED: heparin 1,000unit/ml 10ml vial 10 ML ONE (14:04)
[2025-06-09] MEDS ORDERED: fentaNYL/PF 50MCG/1 ML 2ML syringe ONE (14:04)
[2025-06-09] MEDS ORDERED: nitroGLYCERIN 500mcg/5mL D5W 5 ML IV ONE (14:05)
[2025-06-09] MEDS ORDERED: LIDOcaine 1% 30ml preserv. free vial ONE (14:18)
[2025-06-09] MEDS ORDERED: ondansetron/PF 4mg/2ml inj IV PRN (15:35)
[2025-06-09] MEDS ORDERED: OXAZEpam 15mg capsule PO PRN (15:35)
--- NOTE | 2025-06-21 13:20 | CARDIOLOGY REPORT ---
DATE OF SERVICE: 06/09/2025 DICTATING PHYSICIAN: Richelle Washington MD CARDIAC CATHETERIZATION REPORT DATE OF STUDY: 06/09/2025 PROCEDURES PERFORMED: * Left heart catheterization. * Selective coronary angiography. * Left ventriculography. * Aortic root angiography. * Conscious sedation monitoring time for 30 minutes. INDICATION: Ascending aortic aneurysm. PHYSICIAN: Richelle Washington MD DESCRIPTION OF PROCEDURE: After informed consent was obtained, the patient was brought to the cardiac medical lab technician where he was prepped and draped in the usual C-arm fashion. A 6-Bur[place] sheath was inserted into the right femoral artery. Thereafter, using a JL4 followed by a JR4 catheter, selective coronary angiography was performed. Next, the pigtail catheter was advanced over an 0.035 wire and the left ventricle crossed. Left ventricular end diastolic pressure was obtained. The catheter was pulled back to the ascending aorta and aortic root angiography performed. HEMODYNAMICS: For the patient's hemodynamics, please refer to the event log. Left ventricular end diastolic pressure was 9 mmHg. FINDINGS: All of the patient's coronary arteries are normal caliber vessels with mild luminal irregularities. Left ventricular end diastolic pressure was 14 mmHg. Aortic root angiography revealed an ascending aortic aneurysm. IMPRESSION: * Mild luminal irregularities with no significant coronary artery disease by angiography. * Left ventricular end diastolic pressure was 9 mmHg. Richelle Washington MD TID: [id number] RECEIPT: [id number] EV/KIM
== END 2025-06-09 17:35 | disposition home or self-care (01) ==
LOC: SSTAY O 09:47
PROVIDERS: ATTEND Student in an Organized Health Care Education/Training Program
DX: I71.21 Aneurysm of the ascending aorta, without rupture (principal); I49.5 Sick sinus syndrome; I50.9 Heart failure, unspecified; I48.91 Unspecified atrial fibrillation; I42.0 Dilated cardiomyopathy; I25.10 Atherosclerotic heart disease of native coronary artery without angina pectoris; I42.9 Cardiomyopathy, unspecified; Z79.01 Long term (current) use of anticoagulants; Z79.899 Other long term (current) drug therapy; Z88.8 Allergy status to other drugs, medicaments and biological substances; Z88.6 Allergy status to analgesic agent; Z98.890 Other specified postprocedural states
CPT/HCPCS: 36415; 80048; 80061; 83695; 85025; 85610; 85730; 93005; 93458; 93567; 99152; A6258; C1760; C1894; J1644; J2003; J2250; J3010; J3490; J7030; Q0163; Q9967; Z7610; 99153